=== PATIENT | male | born 1965 | race Caucasian/White ===

== ENCOUNTER 2023-07-22 07:17 | Emergency (ER) | payer OTHER, SELFPAY ==
[2023-07-22] VITALS (7 sets, daily range): BP systolic 130–154; BP diastolic 80–101
--- NOTE | 2023-07-22 07:50 | ED.GENMED ---
History of Present Illness
General
Chief Complaint: Musculo-Skeletal Complaint
Source: patient
Exam Limitations: none
Time Seen by Provider: 07/22/23 07:35
Nursing documentation reviewed up to this point in time: agreed with
Travel History
Have you had any contact with someone who has COVID-19?: No
Do you have any symptoms of coronavirus? Fever > 100 degrees, chills, cough, shortness of breath, sore throat, loss of taste or smell, muscle aches, or headache?: No
History of Present Illness
History of Present Illness:
57-year-old male with past ministry of COPD previous history of alcohol abuse but denies current use, depression, hypertension presenting to the emergency department today with concerns of generalized aches and pains. Claims this been going on for
multiple months including the shoulders elbows and wrists knees ankles and feet. He claims that it somewhat worse more recently he was seen here 2 months ago and was evaluated for probably arthritis. He was started on steroids with improvement at
that point. No additional life-threatening etiology was found at that time. He denies any significant changes feels very similar to that course slightly worse over the past few days. Has had difficulty ambulating secondary to symptoms.
Past History
Past History
ED Past Medical History: COPD, HTN and Psychiatric (Depression)
ED Past Surgical History: Orthopedic (Wrist fracture, )
Social History
Tobacco: Smoker
Alcohol: Former
Personal:
Living: with family
Review of Systems
Review of Systems
Allergies reviewed?: Yes
All Other Systems: ROS reviewed and negative except as documented in HPI and ROS
Phy Exam
Physical Exam
Physical Exam:
GENERAL: Alert , in no apparent distress
EYE: pupils equal and reactive
NECK: Supple, no significant adenopathy.
ENT: o/p clr, mmm.
CARDIAC: Regular rate and rhythm .
LUNGS: Clear breath sounds bilaterally, no acute respiratory distress, no wheezes/rales/rhonchi
ABDOMEN: Soft, without focal tenderness, no r/g, no cvat
NEUROLOGICAL: Alert and oriented, no focal neuro deficits
SKIN: Warm and dry, skin intact.
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 Able to fully range bilateral lower extremities also claims this is
uncomfortable to do so. No significant redness or warmth throughout as well. Full range of motion., well perfused.
PSYCH: Normal and appropriate interaction.
Course
Orders/Labs/Results
Orders:
Orders
07/22/23 07:47
Acetaminophen [Tylenol] 1,000 mg PO NOW STA
Dexamethasone [Decadron] 10 mg PO NOW STA
Ketorolac [Toradol] 30 mg IM NOW STA
07/22/23 08:07
Basic Metabolic Panel Urgent
CBC/With Diff [Complete Blood Count/With Diff] Urgent
Lyme Progressive Urgent
07/22/23 09:01
Pt Eval And Treat Urgent
Activity Level: Ambulate
Abnormal Lab Results
07/22/23
08:07
WBC 4.2 L 10^3/uL
(4.8-10.8)
RBC 2.78 L 10^6/uL
(4.70-6.10)
Hgb 8.9 L g/dL
(13.0-18.0)
Hct 25.8 L %
(39.0-52.0)
MCH 32.0 H pg
(27.0-31.0)
RDW 15.1 H %
(11.5-14.5)
Plt Count 122 L 10^3/uL
(130-400)
MPV 11.0 H fL
(7.4-10.4)
Absolute Lymphs (auto) 0.5 L 10^3/uL
(1.2-3.4)
Neutrophils % 75.8 H %
(42.2-75.2)
Lymphocytes % 12.8 L %
(20.5-51.1)
Monocytes % 10.8 H %
(1.7-9.3)
Sodium 132 L mmol/L
(135-145)
Carbon Dioxide 21 L mmol/L
(22-30)
Creatinine 0.6 L mg/dL
(0.7-1.3)
07/22/23 08:07
07/22/23 08:07
Vital Signs
Initial and Last Documented VS:
Initial Vital Signs
Temp Pulse Resp BP Pulse Ox
99 F 110 16 139/90 98
07/22/23 07:20 07/22/23 07:20 07/22/23 07:20 07/22/23 07:20 07/22/23 07:20
Last Documented Vital Signs
Temp Pulse Resp BP Pulse Ox
99 F 78 16 146/80 98
07/22/23 07:20 07/22/23 08:44 07/22/23 08:44 07/22/23 09:25 07/22/23 09:22
MDM/Problems Addressed
MDM/Problems Addressed:
57-year-old male presenting to the emergency department today with ongoing polyarthralgia that is symmetrical bilaterally. Good range of motion and strength bilaterally but does claim to have discomfort when moving. No redness or warmth. Very
unlikely be septic arthritis with the patient's presentation. No systemic symptoms no fever normal vital signs. Previous evaluation when admitted felt that this was likely an autoimmune issue. He did have improvement with steroids last time.
Patient was given dose of steroid and pain medication. Symptoms improved PT evaluated the patient he was able to walk. Low concern for septic arthritis or emergent process advised for close outpatient follow-up with rheumatology. Return
precautions given.
*Critical Care Note
Total Time (30-74mins, 75-104mins- exclusive of procedures): Not Applicable
ED Attending Note
-
Portions of this chart may have been created with voice recognition software.� Occasional wrong word or��sound alike� substitutions may have occurred due to the inherent limitations of voice recognition software.
Discharge Plan
Departure
Patient Disposition: Home (Routine Discharge)
Date of Disposition: 07/22/23
Time of Disposition: 10:07
Patient with high blood pressure during this ER visit?: No
Condition: Good
Covid-19: Not Applicable
Discharge Problem:
Polymyalgia
Instructions: Muscle and Bone Pain (DC)
Prescriptions:
New
prednisone 20 mg tablet
40 mg PO DAILY 4 Days Qty: 8 0RF
naproxen sodium [Aleve] 220 mg capsule
440 mg PO BID PRN (Reason: Pain) 7 Days Qty: 20 0RF
No Action
carvedilol 6.25 mg Tablet
6.25 mg PO BID Qty: 60 0RF
Referrals:
Nitesh Neil MD [Active] - Follow up in 5-7 days
NONE,* [Family Provider] -
Activity Restrictions/Additional Instructions:
You came to the emergency department today with concerns of bodyaches. This is likely consistent with your previous diagnosis. Please take the prednisone 40 mg once daily for the next 4 days and follow-up closely with the locomotive electrician. Return
to the emergency department for any worsening, new or concerning symptoms.
Interventions
Interventions:
*Risk Screen - Suicide Last Done: 07/22/23 07:20
*General Assessment Last Done: 07/22/23 07:20
*Neglect/Abuse Screening Last Done: 07/22/23 07:20
ED- Fall Risk Assessment Last Done: 07/22/23 07:40
*ED COVID-19 Vaccine History Last Done: 07/22/23 07:40
ED-Musculoskeletal Assessment Last Done: 07/22/23 07:45
[2023-07-22] MEDS: TYLENOL 1000 MG PO (07:58)
[2023-07-22] MEDS: DECADRON 10 MG PO (07:58)
[2023-07-22] MEDS: TORADOL 30 MG IM (08:00)
[2023-07-22 08:15] LABS: % Basophils 0.2 % (0-2); % Eosinophils 0.2 % (0-6); % Immature Granulocytes 0.2 % (0-0.5); % Lymphocytes 12.8 % (20.5-51.1); % Monocytes 10.8 % (1.7-9.3); % Neutrophils 75.8 % (42.2-75.2); Absolute Lymphocytes 0.5 10^3/uL (1.2-3.4); Absolute Monocytes 0.5 10^3/uL (0.1-0.6); Absolute Neutrophils 3.1 10^3/uL (1.4-6.5); Hematocrit 25.8 % (39.0-52.0); Hemoglobin 8.9 g/dL (13.0-18.0); Mean Corp Hgb Conc. 34.5 g/dL (33.0-37.0); Mean Corpuscular Volume 92.8 fL (80.0-94.0); Nucleated Red Blood Cells % 0 % (-); Platelet Count 122 10^3/uL (130-400); Red Blood Cell Count 2.78 10^6/uL (4.70-6.10); Red Cell Dist. Width 15.1 % (11.5-14.5); White Blood Cell Count 4.2 10^3/uL (4.8-10.8)
[2023-07-22 08:39] LABS: Blood Urea Nitrogen 16 mg/dl (9-20); Calcium 8.9 mg/dl (8.4-10.2); Carbon Dioxide 21 mmol/L (22-30); Chloride 106 mmol/L (98-107); Glucose 95 mg/dl (70-99); Sodium 132 mmol/L (135-145); eGFR > 60.00
[2023-07-25 14:15] LABS: Lyme Antibody Screen, EIA Negative (Negative)
== END 2023-07-22 10:00 | disposition home or self-care (01) ==
LOC: EMR 07:17
PROVIDERS: Physician Assistant; EMERGENCY PHYSICIAN Emergency Medicine
DX: M35.3 Polymyalgia rheumatica (principal); J44.9 Chronic obstructive pulmonary disease, unspecified; I10 Essential (primary) hypertension; F32.A Depression, unspecified; F10.10 Alcohol abuse, uncomplicated; F17.200 Nicotine dependence, unspecified, uncomplicated
CPT/HCPCS: 99283; 96372; 80048; 85025; 86618

== ENCOUNTER 2023-08-12 08:10 | Emergency (ER) | payer OTHER, SELFPAY ==
[2023-08-12 08:26] VITALS: BP 143/82
[2023-08-12 08:27] VITALS: BP 143/82
[2023-08-12 08:33] VITALS: BMI 22.5
[2023-08-12] MEDS: NSS 1000 IV (09:28)
[2023-08-12] MEDS: DECADRON 10 MG IV (09:33)
[2023-08-12] MEDS: TORADOL 15 MG IV (09:33)
[2023-08-12 09:59] LABS: % Eosinophils 0.4 % (0-6); % Immature Granulocytes 0.4 % (0-0.5); % Lymphocytes 18.4 % (20.5-51.1); % Monocytes 10.6 % (1.7-9.3); % Neutrophils 70.2 % (42.2-75.2); Absolute Lymphocytes 0.5 10^3/uL (1.2-3.4); Absolute Monocytes 0.3 10^3/uL (0.1-0.6); Absolute Neutrophils 1.7 10^3/uL (1.4-6.5); Hematocrit 22.9 % (39.0-52.0); Hemoglobin 7.5 g/dL (13.0-18.0); Mean Corp Hgb Conc. 32.8 g/dL (33.0-37.0); Mean Corpuscular Hgb 30.9 pg (27.0-31.0); Mean Corpuscular Volume 94.2 fL (80.0-94.0); Mean Platelet Volume 10.9 fL (7.4-10.4); Nucleated Red Blood Cells % 0 % (-); Platelet Count 79 10^3/uL (130-400); Red Blood Cell Count 2.43 10^6/uL (4.70-6.10); Red Cell Dist. Width 16.1 % (11.5-14.5); White Blood Cell Count 2.5 10^3/uL (4.8-10.8)
[2023-08-12 10:12] LABS: ALT (SGPT) 10 U/L (0-50); AST (SGOT) 24 U/L (17-59); Alkaline Phosphatase 112 U/L (38-126); Blood Urea Nitrogen 15 mg/dl (9-20); Calcium 8.7 mg/dl (8.4-10.2); Carbon Dioxide 22 mmol/L (22-30); Chloride 100 mmol/L (98-107); Estimated Creatinine Clearance 117 ml/min; Glucose 86 mg/dl (70-99); Potassium 4.3 mmol/L (3.5-5.1); Sodium 130 mmol/L (135-145); Total Bilirubin 0.5 mg/dl (0.2-1.3); Total Protein 6.5 g/dl (6.3-8.2); eGFR > 60.00
[2023-08-12 10:16] LABS: Erythrocyte Sed Rate 130 mm/hour (0-20)
--- NOTE | 2023-08-12 11:08 | ED.GENMED ---
History of Present Illness
General
Chief Complaint: Swelling
Source: patient
Exam Limitations: none
Time Seen by Provider: 08/12/23 08:14
Nursing documentation reviewed up to this point in time: agreed with
Travel History
Have you had any contact with someone who has COVID-19?: No
Do you have any symptoms of coronavirus? Fever > 100 degrees, chills, cough, shortness of breath, sore throat, loss of taste or smell, muscle aches, or headache?: No
History of Present Illness
History of Present Illness:
58 yo male w h/o alcohol use disorder was in rehab for 30 days in 04/2023, states he drinks 1-2 beer daily no heavy liquor, smoker, presents with 'my hands are swollen' and 'my arms and legs hurt so bad, I can't take it anymore.' States he hasn't
eaten in 3 days due to the pain. Had similar symptoms in past, starting in March 2023. Was here for similar symptoms 05/23/23 and admitted for polyarthralgia with polyarthritis, pancytopenia due to chronic alcoholism. He was discharged on
prednisone 10 mg daily and told to follow-up with rheumatology in 1 week; he has not done so but today he states he has a rheumatology appointment but not until the end of August with someone in [place].
Denies fever/chills, n/v/d.
Past History
Past History
ED Past Medical History: COPD, HTN and Psychiatric (Depression)
ED Past Surgical History: Orthopedic (Wrist fracture, )
Social History
Tobacco: Smoker
Alcohol: Former
Personal:
Living: with family
Review of Systems
Review of Systems
Allergies reviewed?: Yes
All Other Systems: ROS reviewed and negative except as documented in HPI and ROS
Constitutional: Reports weight loss (30 lbs past 4 months); Denies fever
Respiratory: Denies trouble breathing
Cardiac: Denies chest pain
ABD/GI: Reports anorexia; Denies abdominal pain, nausea, vomiting, diarrhea, bloody stools or black stools
: Denies dysuria, frequency, difficulty voiding or urgency
Musculoskeletal: Reports other (Pain in lower extremities, upper extremities, hands); Denies edema
Skin: Reports no symptoms
Neurological: Denies headache
Phy Exam
Physical Exam
Physical Exam:
GENERAL: No acute distress. A&Ox3.
CONSTITUTIONAL: Afebrile.
EYES: Clear, conjunctivae normal
Neck: Supple
ENMT: moist mucus membranes, Pharynx nl
RESPIRATORY: Regular respirations, nonlabored, lungs clear.
CARDIOVASCULAR: Regular rate and rhythm, no murmurs, no rubs.
GI: Soft, nontender, normal BS
Rectal: Light brown stool, hematemesis negative
MUSCULOSKELETAL: Hands are held in a semi claw like position, painful to move, mildly swollen, no redness or warmth. No joint swelling. Brisk capillary refill. It is painful for him to move his arms and legs but he can do so and can ambulate.
Well perfused.
SKIN: Warm, dry, pink
PSYCH: Normal mood and affect. Well kept, interactive and appropriate
NEUROLOGIC: Awake, alert and oriented. No focal neurological deficits
Scores
Heart Failure Risk
Heart Failure Risk Score: Not Applicable
Course
Orders/Labs/Results
Orders:
Orders
08/12/23 08:14
Dexamethasone Sod Phosphate [Decadron] 10 mg IV NOW STA
Ketorolac [Toradol] 15 mg IV NOW STA
08/12/23 08:16
0.9% Sodium Chloride 1000 ml [Nss] 1,000 ml IV BOLUS
08/12/23 09:36
CRP [C-Reactive Protein] Urgent
Complete Blood Count/With Diff Urgent
Comprehensive Metabolic Panel Urgent
Hepatitis C Antibody Routine
Rheumatoid Factor [Rheumatoid Agglutinin] Routine
Sed Rate [Erythrocyte Sed Rate] Urgent
Uric Acid Urgent
Comment: ADD ON
08/12/23 12:20
SCOTT, IgG Reflex to HEp-2 [S] Routine
Cyclic Citrullinat Pep IgG/IgA [S] Routine
Protein Electrophoresis Reflex [S] Routine
Chest [CR Chest - 2 Views ] Urgent
Comment:
Reason For Exam: weight loss, polyarthritis, Rhematology request
08/12/23 12:24
CR Hand - Left Min 3 Views Urgent
Comment:
Reason For Exam: polyarthritis
CR Hand - Right Min 3 Views Urgent
Comment:
Reason For Exam: polyarthritis
Abnormal Lab Results
08/12/23
09:36
WBC 2.5 L 10^3/uL
(4.8-10.8)
RBC 2.43 L 10^6/uL
(4.70-6.10)
Hgb 7.5 L g/dL
(13.0-18.0)
Hct 22.9 L %
(39.0-52.0)
MCV 94.2 H fL
(80.0-94.0)
MCHC 32.8 L g/dL
(33.0-37.0)
RDW 16.1 H %
(11.5-14.5)
Plt Count 79 L 10^3/uL
(130-400)
MPV 10.9 H fL
(7.4-10.4)
Absolute Lymphs (auto) 0.5 L 10^3/uL
(1.2-3.4)
Lymphocytes % 18.4 L %
(20.5-51.1)
Monocytes % 10.6 H %
(1.7-9.3)
ESR 130 H mm/hour
(0-20)
Sodium 130 L mmol/L
(135-145)
Creatinine 0.6 L mg/dL
(0.7-1.3)
C-Reactive Protein 40.10 H mg/L
(0.0-10.00)
Albumin 3.0 L g/dl
(3.5-5.0)
08/12/23 09:36
08/12/23 09:36
Vital Signs
Initial and Last Documented VS:
Initial Vital Signs
BP
143/82
08/12/23 08:26
Last Documented Vital Signs
Temp Pulse Resp BP Pulse Ox
98.1 F 88 17 148/97 97
08/12/23 15:42 08/12/23 15:42 08/12/23 15:42 08/12/23 15:42 08/12/23 15:42
MDM/Problems Addressed
MDM/Problems Addressed:
58 yo male w h/o alcohol use disorder was in rehab for 30 days in 04/2023, states he drinks 1-2 beer daily no heavy liquor, smoker, presents with 'my hands are swollen' and 'my arms and legs hurt so bad, I can't take it anymore.' States he hasn't
eaten in 3 days due to the pain. Had similar symptoms in past, starting in March 2023. Was here for similar symptoms 05/23/23 and admitted for polyarthralgia with polyarthritis, pancytopenia due to chronic alcoholism. He was discharged on
prednisone 10 mg daily and told to follow-up with rheumatology in 1 week; he has not done so but today he states he has a rheumatology appointment but not until the end of August with someone in [place].
Denies fever/chills, n/v/d.
12:16 PM
Patient ate a full lunch
CBC: Pancytopenia worsening since 07/22/2023
CMP with no clinically significant abnormality
CRP elevated at 40/10
Sed rate 130
No indication of GI bleed.
Case discussed with collator Dr. Samuel.
She can get patient in to the on Tuesday which is 4 days from now if we can get the lab work. All labs she requested are ordered.
She will follow up with lab results and get pt in next week
Recommends Prednisone 40 mg daily
Pt is comfortable with this plan.
Bilateral hand x-rays complete. Mild DJD right hand otherwise unremarkable
Chest x-ray NAD
Pt is stable for discharge
*Critical Care Note
Total Time (30-74mins, 75-104mins- exclusive of procedures): Not Applicable
ED Attending Note
-
Portions of this chart may have been created with voice recognition software.� Occasional wrong word or��sound alike� substitutions may have occurred due to the inherent limitations of voice recognition software.
Discharge Plan
Departure
Patient Disposition: Home (Routine Discharge)
Date of Disposition: 08/12/23
Time of Disposition: 13:32
Patient with high blood pressure during this ER visit?: No
Condition: Fair
Discharge Problem:
Polyarthritis
Instructions: Rheumatoid arthritis, Joint Pain
Prescriptions:
New
prednisone 20 mg tablet
40 mg PO DAILY Qty: 14 0RF
No Action
carvedilol 6.25 mg Tablet
6.25 mg PO BID Qty: 60 0RF
prednisone 20 mg tablet
40 mg PO DAILY 4 Days Qty: 8 0RF
naproxen sodium [Aleve] 220 mg capsule
440 mg PO BID PRN (Reason: Pain) 7 Days Qty: 20 0RF
Referrals:
NONE,* [Family Provider] -
Margarita Samuel MD [Active] - Keep scheduled appt
Activity Restrictions/Additional Instructions:
As we discussed, I sent prescription to your pharmacy for Prednisone to take 40 mg daily until further instructed by the Rheumatology doctor on TuesdayAugust 14.
Start the Prednisone tomorrow as you were given a dose of steroid here today.
If you do not hear from the Rheumatology doctor by Tuesday at noon, call her office and inform them of today's plan.
Go home and rest.
No driving until further instructed by the Rheumatology doctor
Interventions
Interventions:
*Risk Screen - Suicide Last Done: 08/12/23 08:29
*General Assessment Last Done: 08/12/23 08:29
*Neglect/Abuse Screening Last Done: 08/12/23 08:29
ED- Fall Risk Assessment Last Done: 08/12/23 08:30
*ED COVID-19 Vaccine History Last Done: 08/12/23 08:29
*Nursing Disposition Last Done: 08/12/23 15:42
ED- Cardiac Assessment Last Done: 08/12/23 09:42
ED- Pulmonary Assessment Last Done: 08/12/23 08:30
ED-Skin Assessment Last Done: 08/12/23 09:42
Discharge Date and Time
Discharge Date/Time: 08/12/23 15:44
Print Language: [place]
[2023-08-12 12:00] VITALS: BP 125/75
[2023-08-12 13:42] VITALS: BP 141/97
[2023-08-12 14:00] VITALS: BP 123/71
[2023-08-12 15:22] LABS: Uric Acid 6.7 mg/dl (3.5-8.5)
[2023-08-12 15:42] VITALS: BP 148/97
[2023-08-12 19:29] LABS: Hepatitis C Antibody Negative (Negative)
[2023-08-15 16:17] LABS: Rheumatoid Agglutinin Less Than 10 IU (<10 IU)
== END 2023-08-12 15:44 | disposition home or self-care (01) ==
LOC: EMR 08:10
PROVIDERS: Registered Nurse; EMERGENCY PHYSICIAN Emergency Medicine
DX: M13.0 Polyarthritis, unspecified (principal)
CPT/HCPCS: 99284; 96374; 96375; 96361; 71046; 73130; 80053; 84550; 85025; 85652; 86140; 86430; 86803

== ENCOUNTER 2023-10-13 05:21 | Inpatient (IN) | payer OTHER, SELFPAY ==
[2023-10-12 20:29] VITALS: BP 133/78
[2023-10-12] MEDS: NSS 1000 IV (22:40)
[2023-10-12 22:53] LABS: Hematocrit 28.2 % (39.0-52.0); Hemoglobin 9.6 g/dL (13.0-18.0); Mean Corpuscular Hgb 30.5 pg (27.0-31.0); Mean Corpuscular Volume 89.5 fL (80.0-94.0); Mean Platelet Volume 9.7 fL (7.4-10.4); Platelet Count 136 10^3/uL (130-400); Red Blood Cell Count 3.15 10^6/uL (4.70-6.10); Red Cell Dist. Width 16.7 % (11.5-14.5); White Blood Cell Count 8.1 10^3/uL (4.8-10.8)
[2023-10-12 23:08] LABS: ALT (SGPT) 23 U/L (0-50); AST (SGOT) 34 U/L (17-59); Acetaminophen < 10 ug/ml (10-30); Albumin 3.4 g/dl (3.5-5.0); Alcohol 184 mg/dl; Alkaline Phosphatase 138 U/L (38-126); Blood Urea Nitrogen 14 mg/dl (9-20); Calcium 8.9 mg/dl (8.4-10.2); Carbon Dioxide 25 mmol/L (22-30); Chloride 104 mmol/L (98-107); Glucose 88 mg/dl (70-99); Magnesium 1.4 mg/dl (1.6-2.3); Salicylate < 1.0 mg/dl (2.0-20.0); Sodium 139 mmol/L (135-145); Total Bilirubin 0.3 mg/dl (0.2-1.3); eGFR > 60.00
[2023-10-13] VITALS (14 sets, daily range): BP systolic 116–180; BP diastolic 60–108; BMI 20.6; BMI 22.3
[2023-10-13] MEDS: MULTIVITAMIN 1011 ML IV (00:29)
[2023-10-13] MEDS: MULTIVITAMIN 1011 MG IV (00:29)
[2023-10-13] MEDS: MAGNESIUM SULFATE 102 GRAMS IV (00:30)
[2023-10-13] MEDS: ATIVAN 1 MG IV (00:38)
[2023-10-13] MEDS: MOTRIN 400 MG PO (01:02)
[2023-10-13 01:43] LABS: COVID-19 Antigen Negative (Negative)
--- NOTE | 2023-10-13 02:44 | ED.GENMED ---
History of Present Illness
General
Chief Complaint: Alcohol Problem
Source: patient
Exam Limitations: none
Time Seen by Provider: 10/12/23 21:31
Nursing documentation reviewed up to this point in time: agreed with
Travel History
Have you had any contact with someone who has COVID-19?: No
Do you have any symptoms of coronavirus? Fever > 100 degrees, chills, cough, shortness of breath, sore throat, loss of taste or smell, muscle aches, or headache?: No
History of Present Illness
History of Present Illness:
Patient with history of alcoholism and depression, presents to ED requesting assistance secondary to recurrent suicidal thoughts, without plan. Denies homicidal ideation. Patient does not know why he has these feelings. Denies recent illness.
Denies fever or chills. However, shortly after arrival, patient noted to be febrile. Denies vomiting or diarrhea. Denies loss of appetite. Patient does admit to having had alcohol this afternoon. Denies previous history of suicidal attempts.
Past History
Past History
ED Past Medical History: COPD, HTN and Psychiatric (Depression)
ED Past Surgical History: Orthopedic (Wrist fracture, )
Social History
Tobacco: Smoker
Alcohol: Former
Personal:
Living: with family
Review of Systems
Review of Systems
Allergies reviewed?: Yes
All Other Systems: ROS reviewed and negative except as documented in HPI and ROS
Constitutional: Reports no symptoms; Denies fever or chills
EENT: Reports no symptoms
Respiratory: Reports cough; Denies trouble breathing
Cardiac: Reports no symptoms
ABD/GI: Reports no symptoms; Denies vomiting or diarrhea
Musculoskeletal: Reports no symptoms
Skin: Reports no symptoms
Neurological: Reports no symptoms
Phy Exam
Physical Exam
Physical Exam:
Physical Exam
General: mild distress, not acutely ill. afebrile
Head: nc/at. eomi
Neck: supple. no meningeal signs.
Heart: tachycardic, no murmur. equal radial pulses.
Lungs: no acute respiratory distress. rhonchi bilaterally
Abdomen: normal bowel sounds. not tender.
Neuro: alert and oriented. no focal neurological deficits
Skin: no rash
Psychiatric: well kept. interactive and cooperative
Extremities: no edema. no calf tenderness.
Scores
Withdrawal Assessment of Alcohol
Withdrawal Assessment Completed?: No
Course
Orders/Labs/Results
Orders:
Orders
10/12/23 22:15
Electrocardiogram (*1) Urgent
Reason for Study: QTc Monitoring
EKG- Treatment ONCE
Urine Drug Abuse Screen Urgent
Date Specimen was Collected: 10/13/23
Time Specimen was Collected: 02:30
0.9% Sodium Chloride 1000 ml [Nss] 1,000 ml IV BOLUS
10/12/23 22:16
Crisis Consult Urgent
Reason for Consult: suicidal ideation
10/12/23 22:41
Acetaminophen Urgent
Alcohol Urgent
Complete Blood Count/No Diff Urgent
Comprehensive Metabolic Panel Urgent
Magnesium Urgent
Salicylate Urgent
10/12/23 23:00
0.9% Sodium Chloride 1000 ml [Nss] 1,000 ml Mvi, Adult [Multivitamin] 10 ml Thiamine Injection 100 mg IV 100 mls/hr
10/12/23 23:38
Lorazepam [Ativan] 1 mg IV NOW STA
10/12/23 23:48
Magnesium Sulfate 1 grams 0.9% Sodium Chloride 100 ml [Nss] 100 ml IV NOW
10/13/23 00:39
Ibuprofen [Motrin] 400 mg PO NOW STA
10/13/23 00:44
CR Chest - 2 Views Urgent
Comment:
Reason For Exam: cough/fever
10/13/23 01:04
COVID-19 Antigen Urgent
Source: Nasal Swab
Blood Culture Q30M
JORDEN Source: Blood/Venous
Specimen Description:
Blood Culture Q30M
JORDEN Source: Blood/Venous
Specimen Description:
Influenza A+B Rapid Molecular Urgent
JORDEN Source: Nasal Swab
Specimen Description:
10/13/23 02:39
CT Chest W/o Iv Contrast Urgent
Comment:
Reason For Exam: cough/fever
10/13/23 02:52
Urinalysis Reflex To Culture Urgent
Date Specimen was Collected: 10/13/23
Time Specimen was Collected: 02:30
Urine Microscopic Reflex Cult Urgent
Urine Culture Urgent
JORDEN Source: U
Specimen Description:
Date Specimen was Collected: 10/13/23
Time Specimen was Collected: 02:30
10/13/23 03:34
Piperacillin/Tazo 3.375 Gram [Zosyn] 3.375 gram in 50 ml IV NOW
10/13/23 04:03
Admit/Transfer Patient As Directed
Co-Sign Provider:
Level of Care: Inpatient admission
Assign to:: Telemetry
Physician / Group: [email or web address]
Diagnosis: SIRS picture vs. acute ETOH WDS / suicidl ideation
Reason for Telemetry: Other
Other Reason for Telemetry: SIRS
Date to Stop Telemetry: 10/15/23
Time to Stop Telemetry: 11:00
Reason for Hospitalization: SIRS picture vs. acute ETOH WDS / suicidl ideation
Expected length of stay greater than two midnights?: Yes
ELOS- Estimated Length of Stay in days: 3
I certify the patient meets the requirements for IP care: Yes
10/13/23 04:05
Code Status As Directed
Resuscitation Status: Full Code
10/13/23 05:36
0.9% Sodium Chloride 1000 ml [Nss] 1,000 ml IV 60 mls/hr
0.9% Sodium Chloride [Nss (Preservative Free)] See Protocol IV PRN PRN
Acetaminophen [Tylenol] 650 mg PO Q4HPRN PRN
FOLic ACID [Folvite] 1 mg 0.9% Sodium Chloride 50 ml [Nss] 50 ml IV DAILYPRN
Ipratropium/Albuterol Sulfate [Duoneb] 3 ml INH R Q4HPRN PRN
Lorazepam [Ativan] 1 mg IV Q1HPRN PRN
Lorazepam [Ativan] 1 mg PO Q2HPRN PRN
Lorazepam [Ativan] 2 mg IV Q1HPRN PRN
10/13/23 05:36
Case Management Consult Once
Case Management Consult: Other
Comment: Substance abuse counseling
Consult Notification Routine
Specialty to Notify: Psychiatry
Date consulting provider notified: 10/13/23
Time consulting provider notified: 05:49
Notified:: Office
Comment: Spoke with [facility] at [address] Naik
DIETARY CONSULT Routine
Reason for Consult: Nutrition support, possible refeeding guidelines
PSYCHIATRY CONSULT Routine
Consulting Provider: Guanakito Cortez
Was physician already notified: No
Reason for consult: HX depresion , suicidal ideation, ETOH use, PNA
Activity As Directed
Activity Level: Out of Bed-Early Mobility
Intake/ Output As Directed
Frequency: Per unit guidelines
MSAS SCORE As Directed
MSAS Score 0-4: Repeat MSAS every 2 hours until 0-4 for three consecutive assessments, then every 4 hours x 48
hours.
MSAS Score 5-7: For MILD withdrawl symptoms. Repeat MSAS and RASS every 2 hours
MSAS Score 8-11: For MODERATE withdrawal symptoms. Repeat MSAS and RASS every 1 hour. Consider ICU or IMU
level of care.
MSAS Score > 11: For SEVERE withdrawal symptoms. Repeat MSAS and RASS every 1 hour. Notify provider, consider
ICU level of care.
MSAS Additional Instructions: If no improvement or no decrease in score from severe to moderate within 12
hours, consult psychiatry
MSAS Notify Provider: Notify provider if patient requires more than 10 mg of Lorazepam in eight hour period.
Vital Signs As Directed
Frequency: Per unit guidelines
Weight As Directed
Frequency: Once
Comment: on admission
DX Deep Vein Thrombosis Video Routine
10/13/23 Breakfast
Cholesterol Lowering
At Your Request: Limited, Residential Sales Consultant Required
Does patient need a safe tray?: Yes
Cholesterol Lowering: Sodium, 2 Gram
10/13/23 07:26
Basic Metabolic Panel IN AM
Complete Blood Count/No Diff IN AM
Procalcitonin Routine
PCT Algorithmm Indication: Sepsis
10/13/23 08:00
FOLic ACID [Folvite] 1 mg PO DAILY
Guaifenesin [Mucinex] 600 mg PO Q12
Nicotine [Nicoderm Transdermal] 21 mg TRANSDERM DAILY
Thiamine Injection 200 mg IV Q12
10/13/23 10:00
Piperacillin/Tazo 3.375 Gram [Zosyn] 3.375 gram in 50 ml IV Q6H
10/13/23 18:00
Enoxaparin Sodium [Lovenox] 40 mg SC QPM
10/15/23 11:00
DC Protocol for Telemetry ONCE
10/16/23 08:00
Thiamine HCl [Vitamin B1] 100 mg PO BID
Abnormal Lab Results
10/12/23 10/13/23
22:41 02:52
RBC 3.15 L 10^6/uL
(4.70-6.10)
Hgb 9.6 L g/dL
(13.0-18.0)
Hct 28.2 L %
(39.0-52.0)
RDW 16.7 H %
(11.5-14.5)
Magnesium 1.4 L mg/dl
(1.6-2.3)
Alkaline Phosphatase 138 H U/L
(38-126)
Albumin 3.4 L g/dl
(3.5-5.0)
Urine Ketones Trace A
(Negative)
Leukocyte Esterase Rfl Trace A
(Negative)
Urine WBC (Reflex) >100 A /HPF
(0-5)
Urine Bacteria (Reflex) Many A
(Negative)
Urine Albumin (Reflex) 1+ A
(Neg - Trace)
Salicylates < 1.0 L mg/dl
(2.0-20.0)
Acetaminophen < 10 L ug/ml
(10-30)
U Marijuana (THC) Screen Positive H
(Negative)
10/12/23 22:41
10/12/23 22:41
Vital Signs
Initial and Last Documented VS:
Initial Vital Signs
Temp Pulse Resp BP Pulse Ox
98.5 F 105 20 133/78 99
10/12/23 20:29 10/12/23 20:29 10/12/23 20:29 10/12/23 20:29 10/12/23 20:29
Last Documented Vital Signs
Temp Pulse Resp BP Pulse Ox
99.2 F 86 16 155/82 97
10/14/23 11:15 10/14/23 11:15 10/14/23 11:15 10/14/23 11:15 10/14/23 11:15
MDM/Problems Addressed
MDM/Problems Addressed:
History and exam concerning for potential aspiration pneumonia, in light of fever along with significant intermittent cough, with history of alcoholism.
CT chest pending.
Patient will be admitted for further evaluation. Patient will be started on Zosyn IV along with continuation of IV hydration. Patient unfortunately is at high risk for potential alcohol withdrawal, i.e. DTs.
*Critical Care Note
Total Time (30-74mins, 75-104mins- exclusive of procedures): Not Applicable
ED Attending Note
-
Portions of this chart may have been created with voice recognition software.� Occasional wrong word or��sound alike� substitutions may have occurred due to the inherent limitations of voice recognition software.
Discharge Plan
Departure
Patient Disposition: Admit
Date of Disposition: 10/13/23
Time of Disposition: 03:24
Admit to: IMU
Presentation/result/management discussed w/ accepting MD/DO: Hospitalist
Discharge Problem:
Aspiration pneumonia, Alcoholism, Suicidal ideation
Interventions
Interventions:
*Risk Screen - Suicide Last Done: 10/12/23 20:29
*General Assessment Last Done: 10/12/23 20:29
*Neglect/Abuse Screening Last Done: 10/12/23 20:29
ED- Fall Risk Assessment Last Done: 10/12/23 22:49
*ED COVID-19 Vaccine History Last Done: 10/13/23 03:16
*Nursing Disposition Last Done: 10/13/23 06:20
ED- Neurological Assessment Last Done: 10/12/23 22:49
ED-Psychological Assessment Last Done: 10/12/23 22:49
Discharge Date and Time
Discharge Date/Time: 10/13/23 13:57
[2023-10-13 03:10] LABS: Urine Albumin 1+ (Neg - Trace); Urine Bilirubin Negative (Negative); Urine Character Slightly Cloudy (Clear); Urine Color Amber; Urine Glucose Negative (Negative); Urine Ketone Trace (Negative); Urine Leukocyte Trace (Negative); Urine Nitrite Negative (Negative); Urine Occult Blood Negative (Negative); Urine Urobilinogen Negative (Neg - 1+)
[2023-10-13 03:27] LABS: Amphetamines Negative (Negative); Barbiturates Negative (Negative); Benzodiazepines Negative (Negative); Buprenorphine Negative (Negative); Cocaine Negative (Negative); Marijuana Positive (Negative); Methadone Negative (Negative); Methamphetamines Negative (Negative); Opiates Negative (Negative); Phencyclidine Negative (Negative); Tricyclic Antidepressants Negative (Negative)
[2023-10-13] MEDS: ZOSYN 50 IV ×2 (03:42→11:04)
--- NOTE | 2023-10-13 03:57 | HPS.HSE ---
Family Physician
-
Family Physician: NOT KNOW UNKNOWN - PT DOES
Chief Complaint
-
suicidal ideation, ETOH abuse, fever
History of Present Illness
58M HX depression , ETOH use disorder initially ER evalaution for crisis concerning recurrent suicidal thoughts, without plan. Denies homicidal ideation. Patient does not know why he has these feelings. No prior HX of suicidal attempts.
Patient does admit to having had alcohol this afternoon
Soon after arrival to ER noted spiked fever to 101, tachycardic and tachypnic
- NEG Covid NEG Flu A & B
- noted b/l ronchiii on exam
- significant intermittent cough
- no nausea and vomiting
Medical History
Past Medical History
Past Medical History: Reports COPD, HTN, Psychiatric (depression , chronic ETOH use disorder) and Other (chr LBP )
Past Surgical History: Reports None
Social History
Tobacco: Smoker
Alcohol: Other (ETOH level 180 )
Drug: None
Personal:
Living: With Family
Family History
Family History: Not pertinent
Allergies / Home Medications
Allergies reflects when Allergies were last updated in [facility].
Home Medications with original date entered in [facility]
Allergy/Medication List:
Allergies
Allergy/AdvReac Type Severity Reaction Status Date / Time
No Known Allergies Allergy Verified 07/22/23 07:19
Home Medications
carvedilol 6.25 mg tablet 6.25 mg PO BID #60 tabs 05/25/23
naproxen sodium 220 mg capsule (Aleve) 440 mg (2 x 220 mg) PO BID PRN Pain 7 days #20 caps 07/22/23
prednisone 20 mg tablet 40 mg (2 x 20 mg) PO DAILY 4 days #8 tabs 07/22/23
prednisone 20 mg tablet 40 mg (2 x 20 mg) PO DAILY #14 tabs 08/12/23
Review of Systems
-
Constitutional: Reports Fever; Denies Chills
EENT: Reports No Symptoms
Respiratory: Reports Cough
Cardiac: Reports No Symptoms
Abdomen/GI: Reports No Symptoms
: Reports No Symptoms
Musculoskeletal: Reports No Symptoms
Skin: Reports No Symptoms
Neurological: Reports No Symptoms
Endocrine: Reports No Symptoms
Hematologic/Lymphatic: Reports No Symptoms
Psych: Reports See HPI
Physical Exam
Vital Signs
Vital Signs
Temp Pulse Resp BP Pulse Ox
101.6 F H 115 24 145/73 91
10/13/23 03:00 10/13/23 03:00 10/13/23 03:00 10/13/23 03:00 10/13/23 03:00
Physical Exam
General: Well Developed, No Apparent Distress, Conversant and Other (unkempt , disheveled )
HEENT: NormoCephalic, Anicteric and Moist mucous membranes
Respiratory: Rhonchi (syummetric )
Cardiac: S1/S2 and Tachycardia; No Murmur
Breast: Deferred by me
GI: Soft, Non Tender, Non Distended and Normal Bowel Sounds
Rectal: Deferred by Provider
Genito-urinary: Deferred by me
Musculoskeletal: No Edema
Skin: Warm and Dry
Neuro: AO x 3
Psych: Depressed and Suicidal (ideation )
Laboratory Results
-
10/12/23 22:41
10/12/23 22:41
Laboratory Results
Total Bilirubin 0.3 mg/dl (0.2-1.3) 10/12/23 22:41
AST 34 U/L (17-59) 10/12/23 22:41
ALT 23 U/L (0-50) 10/12/23 22:41
Alkaline Phosphatase 138 U/L (38-126) H 10/12/23 22:41
Data Reviewed
-
Diagnostic Radiology: Other (pending report )
CT Scan: Other (pending report )
Lab Data: Labs Reviewed by me
Impression/Plan
-
Reviewed VS: T 101.6 HR 115 BP 145/73 RR24 POx 91
Data
WCC 8.1
Hgb 9.6 - baseline is 9-10s
Unremarkable CMP
UA pending to complete urinalysis
BCx
NEG Covid NEG Flu A & B
Unremarkable salicylates and acetaminophen level
UDS POS for THC
ETOH 184
CXR pending report
CTC w/o IV contrast pending report
EKG ST
Last hospitalist admission: 05/23/23 - 05/25/23
Principal Diagnosis:
Scalp rash likely Seborrheic Dermatitis
Symmetric polyarthralgia with polyarthritis, unclear etiology
ASSESSMENT & PLAN
Fever , tachypneic , tachycardic: SIRS picture vs. acute ETOH WDS
Significant cough but not productive
Concern for aspiration pneumonitis confirmed by CTchest shows multi focal pneumonia.
- Pending complete urinalysis
- check PCT
- cont empiric Zosyn
- IVF
- f/u BCx
ETOH use disorder
ETOH 184
at risk for ETOH WDS
- MSAS protocol
- Psych consult
Suicidal ideation without plan
Denies homicidal ideation.
No prior HX of suicidal attempts
-crisis seen
- 1 to 1
Chr Dxes
COPD,
History of chronic lower back pain
Essential hypertension
- Pending Rx reconciliation
DVT Px: LMWH
Code: Full code
IP TLM
[2023-10-13 05:53] LABS: Urine Amorphous Seen; Urine Bacteria Many (Negative); Urine Squamous Cell SEEN /LPF (Few); Urine White Cell >100 /HPF (0-5)
[2023-10-13 07:46] LABS: Hematocrit 22.9 % (39.0-52.0); Hemoglobin 7.7 g/dL (13.0-18.0); Mean Corp Hgb Conc. 33.6 g/dL (33.0-37.0); Mean Corpuscular Hgb 31.2 pg (27.0-31.0); Mean Corpuscular Volume 92.7 fL (80.0-94.0); Red Blood Cell Count 2.47 10^6/uL (4.70-6.10); Red Cell Dist. Width 16.4 % (11.5-14.5); White Blood Cell Count 6.5 10^3/uL (4.8-10.8)
[2023-10-13 07:57] LABS: Mean Platelet Volume 10.2 fL (7.4-10.4); Platelet Count 90 10^3/uL (130-400)
[2023-10-13 08:00] LABS: Blood Urea Nitrogen 17 mg/dl (9-20); Calcium 7.6 mg/dl (8.4-10.2); Carbon Dioxide 25 mmol/L (22-30); Chloride 107 mmol/L (98-107); Glucose 179 mg/dl (70-99); Potassium 3.8 mmol/L (3.5-5.1); Sodium 136 mmol/L (135-145); eGFR > 60.00
[2023-10-13 08:15] LABS: Procalcitonin 0.12 ng/ml (0.0-0.25)
[2023-10-13] MEDS: MUCINEX 600 MG PO ×2 (09:04→21:25)
[2023-10-13] MEDS: NICODERM TRANSDERMAL 21 MG TRANSDERM (09:04)
[2023-10-13] MEDS: FOLVITE 1 MG PO (09:05)
[2023-10-13] MEDS: THIAMINE INJECTION 200 MG IV ×2 (09:05→21:26)
--- NOTE | 2023-10-13 10:19 | CON.MD ---
Consultation - Medical
-
patient seen chart reviewed. spoke with nursing and with dr hargrove. the patient is known to me from a psych evaluation in may of 2022 in the context of a 302 petition alleging he had made suicidal comments. he denied suicidality when he got
sober. he comes to with suicidal ideation without plan. he was found to febrile with cough and cxr suggests pneumonia for which being rx. he is being hospitalized. he also admits he drinks on a dily basis for 'years' although he did have four
to five months of sobriety in the past year but says he relapsed bc of chronic pain. there is mention of polymyalgia rheumatica in the chart but apparently workup not completed. the patient drinks on a daily basis. he could not quantitate how much
and his bal was 185 last drink the day of admission.he did tell me in the past he drinks a liter of hard liquor at a time. he did admit to si in the past but says he will never take his life. sleep and appetite disturbed by chronic pain etc. he
can enjoy some moments but mostly enjoys relief from pain which happens when he passes out from drinking. he has no prior psych hx. there is nothing to suggest psychosis
past psych hx none
medical hx see above pneumonia currently smokes cigs. hx htn hld copd. reports prednisone currently for joint pain see above htn copd anemia (hgb 7.60) ua abn w culture pending as are blood cultures fbs 179 hypocalcemia elev alk phos
vitals w eleva systolic pressure currently afebrile
fh denied
substance abuse etoh see above
social hx see orior psych eval there are supportive family members. 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
mse alert ox3 cooperative pleasant. he looks medically ill and somewhat grisly. speech and thought process nl affect appropriate mood is neutral denies suicidality average intelligence insight judgment lacking
dx etoh use disorder severe
plan msas monitor wd sx if worsens consider phenobarb detox.. workup up medical issues including anemia joint and muscle pain abnormal ua . he really should go to in pt rehab. consult bcares. will follow
--- NOTE | 2023-10-13 10:25 | W.PN.UPDATE ---
Update Note
Progress Note Update
Patient seen and examined
Discussed with resident
Impression:
Presentation with fever, tachycardia.
Multifocal pneumonia.
Alcohol use disorder with risk for delirium tremens.
Possible clinical depression, not confirmed suicidal ideation
Pancytopenia
Suspect alcohol induced hepatic steatosis.
Chronic polyarthralgia
COPD asthma
Hypertension.
Plan:
Presentation with fever, tachycardia
Chest x-ray/CT scan with multifocal pneumonia.
Sepsis ruled out.
? If community-acquired versus aspiration in patient with alcohol intoxication.
Will consider narrow antibiotic spectrum to Unasyn with addition of doxycycline to cover atypical pathogens.
Follow blood cultures
Sputum culture.
Speech and swallow evaluation
Pancytopenia suspect secondary to alcohol use.
Chronic normocytic anemia
No prior history of workup or screening colonoscopy
Check iron studies/B12.
Follow CBC
Empiric PPI
Polyarthralgia
Prior rheumatologic workup negative for SCOTT and rheumatoid factor. Had mild elevation of sed rate and CRP. Referred but never follow-up with rheumatology as outpatient
Reports recent Medrol taper prescribed by primary physician
Will check inflammatory markers, uric acid level, repeat SCOTT and rheumatoid factor, CPK.
Physical therapy evaluation
Alcohol use disorder
Suspect severe given hepatic steatosis
Alcohol intoxication upon admission.
Monitor for DT.
Continue MSAS protocol with lorazepam
Psychiatry consultation
Denies suicidal ideations
COPD
Doubt exacerbation as patient presents with no wheezing.
Imaging with bilateral/multifocal pneumonia as above.
Continue preadmission regimen including Symbicort and albuterol nebs.
Essential hypertension.
On [employer] HOSPITALITY INTERN.
Monitor BP trend.
DVT prophylaxis Lovenox
Full code.
[2023-10-13] MEDS: NSS 1000 IV (11:02)
--- NOTE | 2023-10-13 11:42 | PTOTSP ---
Dysphagia Evaluation
Patient has acute on chronic risk factors for dysphagia (i.e., COPD, ETOH use disorder, and current PNA.) Patient denied any history of chronic dysphagia. Per chart review, chest x-rays (08/12/2023, 03/09/2023, 02/18/2023) without any signs of prior
PNA.
Patient with frequent coughing which makes ruling out aspiration at the bedside difficult at this time. Low suspicion for acute PNA from top-down aspiration. However, if concerned for this consider video swallow study. Suspect oral/pharyngeal
stages of swallowing WFL to continue diet below with swallowing precautions.
Recommend:
1. Regular, Thin Liquids
2. Medications as best tolerated
3. Strategies: upright to 90 degrees, small single sips/bites, slow rate, breaks for breathing, and avoiding PO intake when SOB and/or coughing
4. Oral care 3x daily
--- NOTE | 2023-10-13 12:41 | W.PN.HOSP.TC ---
Today's Communication/Plan
-
MSAS protocol.
Lorazepam as needed.
Speech eval, PT eval.
POLYARTHRALGIA workup.
Anemia workup.
FOBT.
Assessment / Plan
Assessment / Plan
Assessment -
58-year-old male admitted to the hospital for evaluation of active suicidal ideation without plan, alcohol intoxication.
Impression:
Pneumonia.
Alcohol use disorder with risk for delirium tremens.
MDD with suicidal ideation.
Alcoholic steatosis.
Pancytopenia.
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
Polymyalgia rheumatica-questionable no workup
COPD asthma
Hypertension.
Alcohol use disorder
Suicidal ideation, MDD.
Plan:
CAP-
Presentation with fever, tachycardia.
Chest r-sia-awciczoys. CT scan-multifocal pneumonia.
SIRS positive, negative for sepsis.
Rule out pneumonia secondary to aspiration, speech therapy consulted. Speech and swallow evaluation.
Unasyn plus doxycycline.
Blood cultures pending.
Procalcitonin-negative.
Follow blood cultures
Sputum culture.
Alcohol use disorder-
EtOH levels-190. Alcohol intoxication upon admission.
Monitor for delirium tremens-continue MSAs protocol, lorazepam as needed.
Psychiatry recommends inpatient rehab and management, consultation for BKA.
Patient has suicidal ideation but does not have an active plan for ideation.
Pancytopenia-
Secondary to alcohol use. No previous workup.
Normocytic anemia-
Check iron, vitamin B12 levels.
Trend H&H, hemoglobin at 7.7 from 9.2 yesterday.
Monitor H&H closely.
Maintain hemoglobin greater than 7.
If Hb falls less than 7, FOBT.
Empiric PPI for now.
Polyarthralgia-
Prior workup negative for SCOTT, RF.
Had mild elevation of ESR and CRP. No rheumatology follow-up.
Medrol taper from primary care.
Inflammatory markers-uric acid level, SCOTT, RF, CPK-repeat.
PT evaluation.
COPD
Doubt exacerbation as patient presents with no wheezing.
Imaging with bilateral/multifocal pneumonia as above.
Continue preadmission regimen including Symbicort and albuterol nebs.
Essential hypertension.
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
Monitor BP trend.
DVT prophylaxis Lovenox
Full code.
Anticipated Discharge: > 48 hours
Subjective/Interval History
-
Date of Service: October 13, 2023
Patient reports feeling tired, weak.
He denies having any fresh blood in the stool, dark-colored stools, feeling constipated or having diarrhea, nausea, emesis, bloating, belching.
He denies any chest pain.
Objective Data
-
Labs:
Laboratory Results
10/13/23
07:26
WBC 6.5
Hgb 7.7 L
Hct 22.9 L
Plt Count 90 L D
Sodium 136
Potassium 3.8
Chloride 107
Carbon Dioxide 25
BUN 17
Creatinine 0.9
Glucose 179 H
Calcium 7.6 L
Vital Signs:
Vital Signs
Temp Pulse Resp BP Pulse Ox
98.1 F 93 26 141/73 97
10/13/23 11:55 10/13/23 07:33 10/13/23 07:33 10/13/23 07:33 10/13/23 11:55
[2023-10-13] MEDS: UNASYN IV ×2 (14:27→21:25)
[2023-10-13] MEDS: LOVENOX 40 MG SC (17:17)
[2023-10-13] MEDS: VIBRAMYCIN 100 MG PO (21:25)
--- NOTE | 2023-10-13 23:07 | W.PN.UPDATE ---
Update Note
Progress Note Update
Pt was on 1:1 overnight for SI w/o plan
PT was seen by psych. It was told by previous RN that psych dc 1:1, but never stopped official order.
RN states pt has not been on 1:1 since noon. PT has been stable.
Will dc 1:1 order and continue to observe closely
[2023-10-14] MEDS: COREG 6.25 MG PO ×3 (00:49→21:39)
[2023-10-14] MEDS: MELATONIN 5 MG PO (00:49)
[2023-10-14] MEDS: UNASYN IV ×4 (02:56→18:17)
[2023-10-14 03:29] VITALS: BP 163/88
[2023-10-14 07:26] LABS: % Basophils 0.2 % (0-2); % Eosinophils 0.5 % (0-6); % Immature Granulocytes 0.2 % (0-0.5); % Lymphocytes 14.6 % (20.5-51.1); % Monocytes 3.9 % (1.7-9.3); % Neutrophils 80.6 % (42.2-75.2); Absolute Lymphocytes 0.6 10^3/uL (1.2-3.4); Absolute Monocytes 0.2 10^3/uL (0.1-0.6); Absolute Neutrophils 3.5 10^3/uL (1.4-6.5); Hematocrit 21.6 % (39.0-52.0); Hemoglobin 7.1 g/dL (13.0-18.0); Mean Corp Hgb Conc. 32.9 g/dL (33.0-37.0); Mean Corpuscular Hgb 30.6 pg (27.0-31.0); Mean Corpuscular Volume 93.1 fL (80.0-94.0); Mean Platelet Volume 10.6 fL (7.4-10.4); Nucleated Red Blood Cells % 0 % (-); Platelet Count 77 10^3/uL (130-400); Red Blood Cell Count 2.32 10^6/uL (4.70-6.10); Red Cell Dist. Width 16.2 % (11.5-14.5); White Blood Cell Count 4.3 10^3/uL (4.8-10.8)
[2023-10-14] MEDS: NSS 1000 IV (07:33)
[2023-10-14] MEDS: FOLVITE 1 MG PO (07:35)
[2023-10-14] MEDS: NICODERM TRANSDERMAL 21 MG TRANSDERM (07:35)
[2023-10-14] MEDS: MUCINEX 600 MG PO ×2 (07:35→21:38)
[2023-10-14] MEDS: VIBRAMYCIN 100 MG PO ×2 (07:35→21:39)
[2023-10-14] MEDS: THIAMINE INJECTION 200 MG IV ×2 (07:36→21:40)
[2023-10-14 07:40] VITALS: BP 154/87
[2023-10-14 07:40] LABS: Erythrocyte Sed Rate 116 mm/hour (0-20)
[2023-10-14 07:50] LABS: ALT (SGPT) 15 U/L (0-50); AST (SGOT) 26 U/L (17-59); Albumin 2.2 g/dl (3.5-5.0); Alkaline Phosphatase 98 U/L (38-126); Blood Urea Nitrogen 13 mg/dl (9-20); Calcium 7.8 mg/dl (8.4-10.2); Carbon Dioxide 23 mmol/L (22-30); Chloride 109 mmol/L (98-107); Creatine Phosphokinase 32 U/L (55-170); Estimated Creatinine Clearance 96 ml/min; Glucose 83 mg/dl (70-99); HDL Cholesterol 49 mg/dl; LDL Cholesterol, Calculated 72 mg/dl; Magnesium 1.3 mg/dl (1.6-2.3); Phosphorus 3.2 mg/dl (2.5-4.5); Potassium 3.6 mmol/L (3.5-5.1); Sodium 135 mmol/L (135-145); Total Bilirubin 0.4 mg/dl (0.2-1.3); Total Cholesterol 140 mg/dl (50-199); Total Protein 5.1 g/dl (6.3-8.2); Triglyceride 97 mg/dl (10-149); Uric Acid 4.9 mg/dl (3.5-8.5); Very Low Density Lipoprotein 19 mg/dl (0-30); eGFR > 60.00
[2023-10-14] MEDS: MAGNESIUM SULFATE 102 GRAMS IV (08:52)
--- NOTE | 2023-10-14 09:57 | W.PN.HOSP.TC ---
Addendum entered and electronically signed by Heriberto Marcial MD 10/14/23 14:36:
Patient seen and examined
Discussed with resident
Impression:
Presentation with fever, tachycardia.
Multifocal pneumonia.
Alcohol use disorder with risk for delirium tremens.
Possible clinical depression, not confirmed suicidal ideation
Pancytopenia
Suspect alcohol induced hepatic steatosis.
Chronic polyarthralgia
COPD asthma
Hypertension.
Hypomagnesemia
Plan:
Presentation with fever, tachycardia
Chest x-ray/CT scan with multifocal pneumonia.
Sepsis ruled out.
? If community-acquired versus aspiration in patient with alcohol intoxication.
Continue antibiotics covering aspiration and community-acquired pathogens with Unasyn and doxycycline
Follow blood cultures
Sputum culture.
Speech and swallow evaluation
Pancytopenia suspect secondary to alcohol use.
Chronic normocytic anemia
No prior history of workup or screening colonoscopy
Iron levels consistent with weeks picture of iron deficiency and anemia of chronic inflammation
IV iron
Folate.
Follow CBC
Consider packed red blood cell transfusion if hemoglobin falls consistently below 7.
Will require outpatient GI evaluation including colonoscopy.
Polyarthralgia
Prior rheumatologic workup negative for SCOTT and rheumatoid factor. Had mild elevation of sed rate and CRP. Referred but never follow-up with rheumatology as outpatient
Reports recent Medrol taper prescribed by primary physician
Noted with mildly elevated inflammatory markers: Sed rate/CRP. Normal uric acid level. Repeated SCOTT/Rf pending.
Suspect polyarthropathy due to either polyarticular gout versus pseudogout
Will start prednisone empirically at 20 mg.
Physical therapy evaluation
Alcohol use disorder
Suspect severe given hepatic steatosis
Alcohol intoxication upon admission.
Monitor for DT.
Continue MSAS protocol with lorazepam
Psychiatry consultation
Denies suicidal ideations
COPD
Doubt exacerbation as patient presents with no wheezing.
Imaging with bilateral/multifocal pneumonia as above.
Continue preadmission regimen including Symbicort and albuterol nebs.
Essential hypertension.
On Coreg WHIPPER.
Monitor BP trend.
Mild cardiomegaly on imaging. No prior history of CAD or CHF.
Will check pro CHF BNP. Consider echocardiogram
DVT prophylaxis Lovenox
Full code.
Original Note:
Today's Communication/Plan
-
Continue antibiotics for pneumonia.
Stop IV fluids.
Start IV Protonix.
Start ferrous gluconate infusions.
proBNP levels ordered, pending decision for echo.
Start prednisone at 20 mg.
Assessment / Plan
Assessment / Plan
Assessment -
58-year-old male admitted to the hospital for evaluation of active suicidal ideation without plan, alcohol intoxication.
Impression:
Pneumonia.
Alcohol use disorder with risk for delirium tremens.
MDD with suicidal ideation.
Alcoholic steatosis.
Pancytopenia.
Conditions WHIPPER-
Polymyalgia rheumatica-questionable no workup
COPD asthma
Hypertension.
Alcohol use disorder
Suicidal ideation, MDD.
Plan:
CAP-
Presentation with fever, tachycardia.
Chest d-seo-cyydssfna. CT scan-multifocal pneumonia.
SIRS positive, negative for sepsis.
Rule out pneumonia secondary to aspiration, speech therapy consulted. Speech and swallow evaluation.
Unasyn plus doxycycline.
Blood cultures pending.
Procalcitonin-negative.
Blood cultures and sputum cultures pending
Alcohol use disorder-
NSAIDs at 1-2.
Monitor for delirium tremens-continue MSAs protocol, lorazepam as needed.
Psychiatry recommends inpatient rehab and management, consultation for [facility].
Patient has suicidal ideation but does not have an active plan for ideation.
Pancytopenia-
Secondary to alcohol use. No previous workup.
Normocytic anemia-
Check iron, vitamin B12 levels.
Trend H&H, hemoglobin at 7. 1 from 9.7 on admission.
Monitor H&H closely.
Maintain hemoglobin greater than 7.
If Hb falls less than 7, FOBT pending.
Empiric PPI for now. IV iron supplementation started.
Polyarthralgia-
Prior workup negative for SCOTT, RF.
Had mild elevation of ESR and CRP. No rheumatology follow-up.
Restarted on prednisone.
Inflammatory markers-uric acid level within normal limits, CPK-within normal limits,
RF, CCP pending. Consult PT.
COPD
Doubt exacerbation as patient presents with no wheezing.
Imaging with bilateral/multifocal pneumonia as above.
Continue preadmission regimen including Symbicort and albuterol nebs.
Smoker-
100 pack years of smoking.
Dysuria-
Bladder scan order placed.
SOB on exertion-
Troponins within normal limits, EKG yesterday-sinus tachycardia
proBNP ordered.
Depending on proBNP levels will consider planning an echo in the a.m. tomorrow.
Essential hypertension.
On Coreg WHIPPER.
Monitor BP trend.
DVT prophylaxis Lovenox
Full code.
Anticipated Discharge: > 48 hours
Subjective/Interval History
-
Date of Service: October 14, 2023
Patient is much sober today. Patient reports that he drinks only 2 glasses of vodka a day or most of the times when he goes to parties with his friends.
Joint pains and aches started about 6 months ago in March as a first symptom, it started with swelling of small joints in his hands and then progressed gradually to his elbows and then to his shoulder joints. Towards April and he noticed
similar kind of progression in his lower limbs as well, and every time his joint swells he noticed a hyperpigmented rash on his small joints. His primary care started him on prednisone, every time he runs out of prednisone his joint pains are back.
Currently his symmetrical joint pains are about 8/10 in his shoulder and hip, about 6/10 in his elbows and knees. During the last 6 months he lost about 50 pounds, and was noticed to have anemia secondary to iron and folate deficiency, and
pancytopenia. His symmetrical weakness and pain is associated with shortness of breath on exertion since late April to early May and gradually worsened over the last 5 months, currently he cannot walk 10 steps without getting short of
breath. Currently has cough.
Also complains of pain in the lower abdomen, difficulty in passing urine, has the urge and pressure-like sensation to pass urine but could not get a good stream of urine flow for the last 5 months.
Patient has constipation, and passes bowel movements once in every 2 to 3 days.
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
He also reports to have severe back pain that makes it difficult for him to walk. Patient is currently living on food stamps and is unemployed secondary to his sickness.
smoked about 2 packs of cigarettes a day for 50 years, cut down smoking to 1 pack of cigarettes a day over the last 6 months. Also has silica exposure at work for about 30 years. Patient is also having chronic cough with mucoid sputum for about 5
months now.
Never received a screening colonoscopy.
Objective Data
-
Labs:
Laboratory Results
10/14/23
06:44
WBC 4.3 L
Hgb 7.1 L
Hct 21.6 L
Plt Count 77 L
Sodium 135
Potassium 3.6
Chloride 109 H
Carbon Dioxide 23
BUN 13
Creatinine 0.7
Glucose 83
Calcium 7.8 L
Total Bilirubin 0.4
AST 26
ALT 15
Alkaline Phosphatase 98
Vital Signs:
Vital Signs
Temp Pulse Resp BP Pulse Ox
99.2 F 83 16 154/87 95
10/14/23 07:40 10/14/23 07:40 10/14/23 07:40 10/14/23 07:40 10/14/23 07:40
I&O
10/13/23 10/14/23 10/15/23
06:59 06:59 06:59
Intake Total 480 / 480
Output Total 675 / 675
Balance -195 / -195
Review of Systems
-
History Source: Patient
Constitutional: Reports No Symptoms
EENT: Reports No Symptoms Reported
Respiratory: Reports Cough and Trouble Breathing
Abdomen/GI: Reports No Symptoms
Genitourinary: Reports Difficulty Voiding
Musculoskeletal: Reports Joint Pain, Arthralgias and Myalgias
Skin: Reports No Symptoms
Neuro: Reports No Symptoms
Hematologic / Lymphatic: Reports No Symptoms
Allergy / Immunology: Reports No Symptoms
Physical Exam
-
General: Well Developed, Well Nourished and Pain
HEENT: Normocephalic, Atraumatic and Moist Mucous Membranes
Respiratory: Wheezes and Rhonchi
Cardiac: Regular Rhythm and S1/S2; Negative Murmur, Rub or Gallop
GI: Soft
Genito-urinary: No Costovertebral Tender and Supra Pubic Tube (mild)
Musculoskeletal: No Clubbing, No Cyanosis, No Edema and Other (POM limited beyond 90 degrees at shoulder and hip bilaterally.)
Neuro: AO x 3, No Motor Deficits and Other (strength 3/5 in b/l UE, 4/5 in b/l LE, )
Psych: Calm
[2023-10-14 10:37] LABS: Iron 23 ug/dl (49-181); Percent Saturation 16 % (20-50); Total Iron Binding Capacity 141 ug/dl (261-462)
--- NOTE | 2023-10-14 11:10 | PN.CDI ---
CDI
- -
CDI:
Physician Documentation Request
Admit Date: 10/13/23 05:21
Dear Doctor Aggie,
Please review the following and provide your response in the progress notes.
Clinical Indicators:
Pt admitted with Pneumonia SIRS positive /Sepsis ruled out
Nutrition consult 10/12,' Pt reports lost 40 lbs but could not recall time frame. Pt was 139 lbs last admission. CBW: 123 lbs reflective of a 16 lb (12%) weight loss in 4 months, significant. Pt reports poor appetite for past few months, not
eating mostly drinking. Pt states having pain with poor appetite at the moment....RD unable to provide nutrition based physical assessment as speech needed to do evaluation. With weight loss of > 10% in month and < 75% estimated needs > 1 month pt
meets AND/ASPEN criteria for moderate protein calorie malnutrition of chronic illness. ...'
Based on the information, which of the following most accurately represents the patient's nutritional status?
Moderate Protein Calorie Malnutrition
Mild Protein calorie Malnutrition
Other (please specify)
S[place]etser Criteria (ACP Hospitalist 2017)
2 or more criteria must be present for either
non severe or severe malnutrition
Note that the criteria differs related to the
presence of an acute or chronic illness
Acute Illness Chronic Illness
Energy Intake Non Severe: <75% for >7 days Non Severe: <75% for >1 month
Severe: <50% for >5 days Severe: <75% for >1 month
Weight Loss Non Severe: 1-2% over 1 week Non Severe: 5% over 1 month
5% over 1 month 7.5% over 3 months
7.5% over 3 months 10% over 6 months
1 year N/A 20% over 1 year
Severe: >2% over 1 week Severe: >5% over 1 month
>5% over 1 month >7.5% over 3 months
>7.5% over 3 months >10% over 6 months
1 year N/A >20% over 1 year
Body Fat Non Severe: Mild Decrease Non Severe: Mild Loss
Severe: Moderate Decrease Severe: Severe Loss
Muscle Mass Non Severe: Mild Decrease Non Severe: Mild Loss
Severe: Moderate Decrease Severe: Severe Loss
Fluid Accumulation Non Severe: Mild Accumulation Non Severe: Mild Accumulation
Severe: Moderate to severe Severe: Moderate to severe
accumulation accumulation
Reduced Production Team Manager Strength Non Severe: N/A Non Severe: N/A
Severe: Measurably reduced Severe: Measurably reduced
Use of terms such as suspected, likely, concern for, or probable (associated with a specific diagnosis that is being evaluated, monitored, or treated as if it exists) are acceptable and can be coded in the inpatient setting, when documented at the
time of discharge.
Thank you,
Nathaly Sanches RN
CDI Specialist
[place] [facility]
Please use your independent medical judgment in providing your response.
[2023-10-14 11:15] VITALS: BP 155/82
--- NOTE | 2023-10-14 11:37 | W.PN.UPDATE ---
Update Note
Progress Note Update
patient seen chart reviewed. discussed w nursing who was concerned that patient had been on one to one. i had dc'ed the one to one when i saw him yesterday but somehow there was another one to one which had not been dc'ed. he is not suicidal. he
is however dismayed by how sick he feels physically. we talked about his many medical problems and i explained to him about the anemia and polyarthralgias needing to be assessed. amberly also has been febrile. he is hypertensive and copd does not help
matters. 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 he tends to minimize his etoh use but i pointed out to him that in the presence
of medical compromise it would not take much alcohol to worsen his conditions. he is very worried about his job 'how will i pay the bills?' he has applied for disability but only recently. from the perspective of withdrawal from etoh he seems to
be doing reasonably. i suspect the hypertension noted is more essential htn and that fever has other etiology. he does not appear to be tremulous sweating etc. will continue to follow. not clear to me that he needs antidepressants. my sense is
that his mood is more related to how bad he feels physically. will follow
[2023-10-14 11:51] LABS: Troponin I < 0.012 ng/ml
[2023-10-14 13:41] LABS: Urine Protein 31 mg/dl (0-12)
[2023-10-14] MEDS: PROTONIX IV 40 MG IV (13:54)
[2023-10-14] MEDS: FERRLECIT 110 MG IV (13:54)
[2023-10-14] MEDS: NSS (PRESERVATIVE FREE) 10 ML IV (13:54)
[2023-10-14] MEDS: DELTASONE 20 MG PO (13:55)
[2023-10-14 14:50] LABS: NT-proBNP 7120 pg/ml
[2023-10-14 15:23] VITALS: BP 152/94
[2023-10-14] MEDS: MAGNESIUM SULFATE 50 IV (16:00)
--- NOTE | 2023-10-14 16:08 | CM ---
Met with patient daughter at the bedside; initial assessment and case management consult completed
Pharmacy verified: [facility], [facility]
Family Physician verified: Lindsey Morales MD; [address], [place];
Patient reports he lives in a multilevel home; daughterXenia, lives with him; 2 steps to enter; 13 steps between floors; inside railings present
Patient's bedroom and bathroom on the first floor of the home; bath has tub with shower; grab bar
PLOF: reports he is independent with ADLs and ambulation; does not go up or down stairs in the house due to SOB
DME: nebulizer
SNF/Rehab/Home Health utilization history: voluntary admission to rehab into [facility] in 2022
[facility] counseling offered; patient agreeable; referral submitted to [facility] counselor financial administration officer via phone
Transporation: daughter will provide ride home
Plan: will most likely discharge to home when medically stable; CM will monitor for needs/services at discharge
--- NOTE | 2023-10-14 16:14 | W.PN.UPDATE ---
Update Note
Progress Note Update
Patient's Pro BNP is at 7210. baseline pro BNP on 05/22/23 - 120, repeat pro BNP - on 05/23/23 - 1969. Progressive SOB on exertion.
2D echo ordered.
Results pending.
? alcoholic cardiomyopathy vs ischemic vs auto immune etiology.
[2023-10-14] MEDS: LOVENOX 40 MG SC (18:17)
[2023-10-14 19:00] VITALS: BP 151/80
[2023-10-14] MEDS: SYMBICORT 160/4.5 MCG INHALER 2 PUFF INH (19:41)
[2023-10-14] MEDS: TYLENOL 650 MG PO (21:42)
[2023-10-14 23:00] VITALS: BP 164/80
[2023-10-15] VITALS (9 sets, daily range): BP systolic 123–190; BP diastolic 80–98
[2023-10-15] MEDS: UNASYN IV ×5 (00:25→23:32)
[2023-10-15] MEDS: MOTRIN 400 MG PO (04:39)
[2023-10-15 06:01] LABS: % Immature Granulocytes 0.8 % (0-0.5); % Lymphocytes 12.1 % (20.5-51.1); % Monocytes 6.8 % (1.7-9.3); % Neutrophils 80.3 % (42.2-75.2); Absolute Lymphocytes 0.3 10^3/uL (1.2-3.4); Absolute Monocytes 0.2 10^3/uL (0.1-0.6); Absolute Neutrophils 2.1 10^3/uL (1.4-6.5); Mean Corp Hgb Conc. 33.5 g/dL (33.0-37.0); Mean Corpuscular Hgb 31.1 pg (27.0-31.0); Mean Corpuscular Volume 92.9 fL (80.0-94.0); Mean Platelet Volume 11.4 fL (7.4-10.4); Nucleated Red Blood Cells % 0 % (-); Platelet Count 67 10^3/uL (130-400); Red Blood Cell Count 2.25 10^6/uL (4.70-6.10); Red Cell Dist. Width 15.8 % (11.5-14.5); White Blood Cell Count 2.7 10^3/uL (4.8-10.8)
[2023-10-15 06:21] LABS: ALT (SGPT) 14 U/L (0-50); AST (SGOT) 16 U/L (17-59); Albumin 2.2 g/dl (3.5-5.0); Alkaline Phosphatase 96 U/L (38-126); Blood Urea Nitrogen 9 mg/dl (9-20); Calcium 7.8 mg/dl (8.4-10.2); Carbon Dioxide 21 mmol/L (22-30); Chloride 108 mmol/L (98-107); Estimated Creatinine Clearance 112 ml/min; Glucose 372 mg/dl (70-99); Magnesium 1.8 mg/dl (1.6-2.3); Potassium 3.8 mmol/L (3.5-5.1); Sodium 134 mmol/L (135-145); Total Bilirubin 0.2 mg/dl (0.2-1.3); Total Protein 4.9 g/dl (6.3-8.2); eGFR > 60.00
[2023-10-15 06:24] LABS: Hematocrit 20.9 % (39.0-52.0)
--- NOTE | 2023-10-15 06:47 | PTCARENOTE ---
Critical HCT 20.9, BELINDA Hannah aware.
[2023-10-15] MEDS: SYMBICORT 160/4.5 MCG INHALER 2 PUFF INH ×2 (07:50→19:44)
[2023-10-15] MEDS: COREG 6.25 MG PO ×2 (09:01→18:47)
[2023-10-15] MEDS: MUCINEX 600 MG PO ×2 (09:02→20:40)
[2023-10-15] MEDS: DELTASONE 20 MG PO (09:02)
[2023-10-15] MEDS: NICODERM TRANSDERMAL 21 MG TRANSDERM (09:02)
[2023-10-15] MEDS: FOLVITE 1 MG PO (09:02)
[2023-10-15] MEDS: THIAMINE INJECTION 200 MG IV ×2 (09:03→20:40)
[2023-10-15] MEDS: PROTONIX IV 40 MG IV (09:03)
[2023-10-15] MEDS: VIBRAMYCIN 100 MG PO ×2 (09:03→20:40)
[2023-10-15] MEDS: NSS (PRESERVATIVE FREE) 10 ML IV (09:03)
[2023-10-15 11:13] LABS: Troponin I < 0.012 ng/ml
[2023-10-15] MEDS: FERRLECIT 110 MG IV (12:59)
--- NOTE | 2023-10-15 13:24 | W.PN.UPDATE ---
Update Note
Progress Note Update
patient seen chart reviewed. from the perspective of etoh wd patient is doing reasonably. his bp was high this am but this afternoon has come down this afternoon. my sense is that this may be essential htn as he does not appear to be in wd
distress. he is concerned about physical illnesses which are being addressed. he is saying things like 'i have no cravings (for etoh) as if to say it will be easy to stay sober. i continue to tell him that being here and having no cravings is one
thing but being home and staying sober is another. he really should consider etoh rehab although he says he has been there and done that. will continue to encourage.
--- NOTE | 2023-10-15 15:17 | W.PN.HOSP.TC ---
Today's Communication/Plan
-
Monitor for recurrent VTE.
Replete magnesium
Transfuse 1 unit of packed red blood cells and follow CBC
Continue IV iron
Continue IV antibiotics.
Cardiology evaluation
Systemic steroids/prednisone for polyarthropathy.
Physical therapy evaluation
Assessment / Plan
Assessment / Plan
Impression:
Presentation with fever, tachycardia.
Multifocal pneumonia.
Nonsustained ventricular tachycardia.
Alcohol use disorder with risk for delirium tremens.
Possible clinical depression, not confirmed suicidal ideation
Pancytopenia
Suspect alcohol induced hepatic steatosis.
Chronic polyarthralgia
COPD asthma
Hypertension.
Hypomagnesemia
Mild protein calorie malnutrition
Plan:
Presentation with fever, tachycardia
Chest x-ray/CT scan with multifocal pneumonia.
Sepsis ruled out.
? If community-acquired versus aspiration in patient with alcohol intoxication.
Continue antibiotics covering aspiration and community-acquired pathogens with Unasyn and doxycycline
Follow blood cultures negative to date
Speech and swallow evaluation appreciated
Episode of nonsustained ventricular tachycardia without symptoms on 10/14
Negative troponins
Echocardiogram with preserved biventricular function and no left-ventricular wall motion abnormalities.
Continue cardiac monitoring
Replete magnesium
Transfuse to keep hemoglobin above 8.
Cardiology evaluation
Pancytopenia suspect secondary to alcohol use.
Chronic normocytic anemia
No prior history of workup or screening colonoscopy
Iron levels consistent with weeks picture of iron deficiency and anemia of chronic inflammation
IV iron
Folate.
Transfuse to keep hemoglobin above 8. 1 unit of packed red blood cells ordered on 10/14
Consider packed red blood cell transfusion if hemoglobin falls consistently below 7.
Will require outpatient GI evaluation including colonoscopy.
Polyarthralgia
Prior rheumatologic workup negative for SCOTT and rheumatoid factor. Had mild elevation of sed rate and CRP. Referred but never follow-up with rheumatology as outpatient
Reports recent Medrol taper prescribed by primary physician
Noted with mildly elevated inflammatory markers: Sed rate/CRP. Normal uric acid level. Repeated SCOTT/Rf pending.
Suspect polyarthropathy due to either polyarticular gout versus pseudogout
Initiated on prednisone empirically at 20 mg.
Physical therapy evaluation
Steroid-induced hyperglycemia
Check hemoglobin A1c.
Basal bolus protocol
Alcohol use disorder
Suspect severe given hepatic steatosis
Alcohol intoxication upon admission.
Monitor for DT.
Continue MSAS protocol with lorazepam
Psychiatry consultation
Denies suicidal ideations
COPD
Doubt exacerbation as patient presents with no wheezing.
Imaging with bilateral/multifocal pneumonia as above.
Continue preadmission regimen including Symbicort and albuterol nebs.
Essential hypertension.
On Coreg RECEPTIONIST DOCTOR'S OFFICE.
Monitor BP trend.
Mild cardiomegaly on imaging. No prior history of CAD or CHF.
Will check pro CHF BNP. Consider echocardiogram
DVT prophylaxis Lovenox
Full code.
Anticipated Discharge: 24 - 48 hours
Subjective/Interval History
-
Date of Service: October 15, 2023
Objective Data
-
Labs:
Laboratory Results
10/15/23
05:20
WBC 2.7 L
Hgb 7.0 L
Hct 20.9 L*
Plt Count 67 L
Sodium 134 L
Potassium 3.8
Chloride 108 H
Carbon Dioxide 21 L
BUN 9
Creatinine 0.6 L
Glucose 372 H
Calcium 7.8 L
Total Bilirubin 0.2
AST 16 L
ALT 14
Alkaline Phosphatase 96
Vital Signs:
Vital Signs
Temp Pulse Resp BP Pulse Ox
98.4 F 63 18 123/89 98
10/15/23 11:00 10/15/23 11:00 10/15/23 11:00 10/15/23 11:00 10/15/23 11:00
I&O
10/14/23 10/15/23 10/16/23
06:59 06:59 06:59
Intake Total 480 / 480 2019
Output Total 675 / 675 1235 / 1235
Balance -195 / -195 785 / 785
Physical Exam
-
General: Well Developed and No Apparent Distress
HEENT: Normocephalic, Atraumatic and Moist Mucous Membranes
Respiratory: Clear to Auscultation
Cardiac: Regular Rhythm and S1/S2; Negative Murmur, Rub or Gallop
GI: Soft, Nontender, Nondistended and Normal Bowel Sounds; Negative Organomegaly
Rectal: Deferred by Provider
Musculoskeletal: No Clubbing, No Cyanosis and No Edema
Skin: Negative Rash
Neuro: Nonfocal/Grossly Intact
--- NOTE | 2023-10-15 16:32 | PTCARENOTE ---
13 beats Vtach. Pt sleeping and symptomatic. VS stable. Dr Marcial aware.
[2023-10-15 17:14] LABS: Glucose - Point of Care 451 mg/dl (70-99)
[2023-10-15] MEDS: LOVENOX 40 MG SC (18:04)
[2023-10-15 18:06] LABS: Glucose 386 mg/dl (70-99)
[2023-10-15] MEDS: NOVOLOG FLEXPEN-LOW RESISTANCE 5 UNITS SC (18:48)
[2023-10-15] MEDS: MAGNESIUM OXIDE 500 MG PO (20:40)
[2023-10-15 21:26] LABS: Glucose - Point of Care 483 mg/dl (70-99)
[2023-10-15 22:01] LABS: CCP Antibody IgG/IgA 5 Units (0-19)
[2023-10-15 22:24] LABS: Glucose 366 mg/dl (70-99)
[2023-10-15] MEDS: APRESOLINE 5 MG IV (23:32)
[2023-10-15] MEDS: NOVOLOG FLEXPEN 10 UNITS SC (23:34)
[2023-10-16] VITALS (8 sets, daily range): BP systolic 163–185; BP diastolic 80–101
[2023-10-16 01:51] LABS: Glucose - Point of Care 178 mg/dl (70-99)
[2023-10-16] MEDS: UNASYN IV ×3 (05:32→17:18)
[2023-10-16 07:16] LABS: Glucose - Point of Care 118 mg/dl (70-99)
[2023-10-16] MEDS: SYMBICORT 160/4.5 MCG INHALER 2 PUFF INH ×2 (07:16→19:46)
[2023-10-16] MEDS: NOVOLOG FLEXPEN-LOW RESISTANCE SC ×2 (07:17→17:35)
[2023-10-16 07:19] LABS: % Basophils 0.3 % (0-2); % Eosinophils 0.3 % (0-6); % Immature Granulocytes 0.8 % (0-0.5); % Lymphocytes 18.2 % (20.5-51.1); % Monocytes 6.6 % (1.7-9.3); % Neutrophils 73.8 % (42.2-75.2); Absolute Lymphocytes 0.7 10^3/uL (1.2-3.4); Absolute Monocytes 0.3 10^3/uL (0.1-0.6); Absolute Neutrophils 2.9 10^3/uL (1.4-6.5); Hematocrit 23.8 % (39.0-52.0); Mean Corp Hgb Conc. 33.6 g/dL (33.0-37.0); Mean Corpuscular Volume 86.2 fL (80.0-94.0); Mean Platelet Volume 10.5 fL (7.4-10.4); Nucleated Red Blood Cells % 0 % (-); Platelet Count 79 10^3/uL (130-400); Red Blood Cell Count 2.76 10^6/uL (4.70-6.10); Red Cell Dist. Width 19.9 % (11.5-14.5); White Blood Cell Count 3.9 10^3/uL (4.8-10.8)
[2023-10-16 07:42] LABS: Blood Urea Nitrogen 13 mg/dl (9-20); Calcium 8.4 mg/dl (8.4-10.2); Carbon Dioxide 25 mmol/L (22-30); Chloride 108 mmol/L (98-107); Estimated Creatinine Clearance 112 ml/min; Glucose 94 mg/dl (70-99); Potassium 3.6 mmol/L (3.5-5.1); Sodium 137 mmol/L (135-145); eGFR > 60.00
[2023-10-16] MEDS: DELTASONE 20 MG PO (07:50)
[2023-10-16] MEDS: MUCINEX 600 MG PO ×2 (07:50→21:26)
[2023-10-16] MEDS: PROTONIX 20 MG PO (07:50)
[2023-10-16] MEDS: VITAMIN B1 100 MG PO ×2 (07:50→21:25)
[2023-10-16] MEDS: NICODERM TRANSDERMAL 21 MG TRANSDERM (07:50)
[2023-10-16] MEDS: VIBRAMYCIN 100 MG PO ×2 (07:50→21:25)
[2023-10-16] MEDS: FOLVITE 1 MG PO (07:50)
[2023-10-16] MEDS: MAGNESIUM OXIDE 500 MG PO ×2 (07:50→21:26)
[2023-10-16] MEDS: COREG 6.25 MG PO ×2 (07:50→21:25)
[2023-10-16 10:17] LABS: Glycohemoglobin (HgbA1c) 6.6 % (4.0-5.6)
--- NOTE | 2023-10-16 11:26 | W.PN.UPDATE ---
Update Note
Progress Note Update
patient seen chart reviewed. spoke to nursing. friend at bedside. tried to explain to patient who is only agreeing to out pt rx of his alcoholism that the stakes are very high here. in addition to the long list of medical issues already noted by
psych yesterday he had a long run of v tach which is being addressed. he does not seem to get that sobriety is of the utmost importance here and bc he has no cravings in the hospital that does not secure his sobriety when he leaves here. he is not
withdrawing from etoh at this point. that has not really been a big issue here but he does not have the tools at this point to maintain sobriety in my estimation
--- NOTE | 2023-10-16 11:41 | CON.CAR ---
Consultation
Consultation Request
Date/Time Consultation Requested: 10/15/23 4:00pm
Date/Time Consultation Performed: 10/16/23 11:00am
Requesting Provider: Dr. Marcial
Performing Provider: Dr Fortune
Reason for Consultation: NSVT
Medical History
-
Chief Complaint: fever/cough
History of Present Illness:
58-year-old male with past medical history of polyarthralgia, alcohol abuse, tobacco use, hypertension, depression, and COPD presents to [facility] with fever, tachycardia, and cough. A workup ensued and chest x-ray and CT scan suggested
multifocal pneumonia. He was treated with antibiotics and slowly improved. He denied any chest pains. His breathing has been improving. On October 14 he had an episode of 12 beats of nonsustained ventricular tachycardia. The patient did not feel
it. He has no palpitations. He has been hospitalized for several days. He denies any shakes, withdrawal symptoms, or hallucinations. He states he is relatively active and ambulates with no chest pains or shortness of breath. He does have
depression. He does smoke a pack of cigarettes daily. He was also found to have pancytopenia presumably from alcohol abuse. He denies any leg edema
Past Medical History
Past Medical History: COPD, HTN and Other (Polyarthralgia, depression, alcohol and tobacco abuse)
Past Surgical History: None
Social History
Tobacco: Smoker (1ppd)
Alcohol: Daily
Drug: Marijuana
Employment: Not Employed
Family History
Family History: Hypertension
Allergies / Home Medications
Allergy/AdvReac Type Severity Reaction Status Date / Time
No Known Allergies Allergy Verified 07/22/23 07:19
�Medication �Instructions �Recorded �Confirmed �Type
carvedilol 6.25 mg tablet 6.25 mg PO BID #60 tabs 05/25/23 10/13/23 Rx
albuterol sulfate 90 mcg/actuation 2 puff inhalation Q4HPRN PRN 10/13/23 10/13/23 History
aerosol inhaler SHORTNESS OF BREATH
budesonide-formoterol HFA 160 2 puff inhalation BID 10/13/23 10/13/23 History
mcg-4.5 mcg/actuation aerosol Lung/Breathing Issues
inhaler (Symbicort)
ferrous sulfate 325 mg (65 mg 325 mg PO DAILY Supplement 10/13/23 10/13/23 History
iron) tablet
folic acid 400 mcg tablet 0.4 mg PO DAILY Supplement 10/13/23 10/13/23 History
multivitamin 1 tab PO DAILY Supplement 10/13/23 10/13/23 History
Review of Systems
-
History Source: Patient
Constitutional: Fever and Fatigue
EENT: No Symptoms
Respiratory: Cough and Trouble Breathing
Cardiac: No Symptoms
Abdomen/GI: Abdominal Pain
: No Symptoms
Musculoskeletal: No Symptoms
Skin: No Symptoms
Neurological: No Symptoms
Endocrine: No Symptoms
Hematologic/Lymphatic: No Symptoms
Physical Exam
Vital Signs
Temp Pulse Resp BP Pulse Ox
98.1 F 72 15 165/92 98
10/16/23 07:00 10/16/23 07:18 10/16/23 07:18 10/16/23 07:00 10/16/23 07:00
Lab Results
10/16/23 06:19
10/16/23 06:19
Troponin I < 0.012 ng/ml 10/15/23 10:42
Ekr-I-Xhiznarfuma Pept Cancelled 10/14/23 12:52
Physical Exam
General: Well Developed and No Apparent Distress
HEENT: Normocephalic and Anicteric
Respiratory: Rhonchi
Cardiac: S1/S2 and Regular Rhythm
GI: Soft, Non Tender and Non Distended
Genito-urinary: No Costovertebral Tender
Musculoskeletal: No Edema
Skin: Warm and Dry
Neuro: AO x 3
Hematologic/Lymphatic: No Lymphadenopathy
Psych: Calm
Impression / Plan
-
Assess:
Nonsustained ventricular tachycardia
Alcohol abuse
Pancytopenia
Multifocal pneumonia
Depression
Anemia
Chronic polyarthralgia
Likely alcohol induced fatty liver
Cough/shortness of breath
elevated pro-bnp
Echocardiogram October 14, 2023, EF 54%, normal RV function, PA pressure 30-35
PLan:
He presents with an episode of nonsustained ventricular tachycardia in the setting of alcohol abuse, pancytopenia, and multifocal pneumonia.
EKG has normal sinus rhythm with sinus bradycardia and a normal QT interval.
Continue Unasyn and doxycycline.
His ejection fraction is overall preserved and heart rates in the 60s. I will continue Coreg 6.25 mg twice daily.
His proBNP is significantly elevated we will try Lasix 40 mg IV 1 to see if this helps his breathing.
Continue inhalers and prednisone for his polyarthralgia.
We discussed the importance of quitting alcohol and tobacco.
He likely should have a noninvasive stress test as an outpatient when he recovers from his pneumonia.
Data Reviewed
-
EKG: Tracing Personally Visualized and interpreted
Radiology: Report Reviewed by me
Medical Tests (Nuc Med, Echo etc): Image Personally Visualized and interpreted
Labs: Labs Reviewed by me
Old Records: Reviewed
--- NOTE | 2023-10-16 11:44 | W.PN.HOSP.TC ---
Today's Communication/Plan
-
cont abx
d/c planning
keep K > 4 and mag > 2
Assessment / Plan
Assessment / Plan
Impression:
Presentation with fever, tachycardia.
Multifocal pneumonia.
Nonsustained ventricular tachycardia.
Alcohol use disorder with risk for delirium tremens.
Possible clinical depression, not confirmed suicidal ideation
Pancytopenia
Suspect alcohol induced hepatic steatosis.
Chronic polyarthralgia
COPD asthma
Hypertension.
Hypomagnesemia
Mild protein calorie malnutrition
Plan:
Presentation with fever, tachycardia--urine culture also positive so has Enterococcus faecalis UTI
Chest x-ray/CT scan with multifocal pneumonia.
Sepsis ruled out.
? If community-acquired versus aspiration in patient with alcohol intoxication.
Continue antibiotics covering aspiration and community-acquired pathogens with Unasyn and doxycycline
Follow blood cultures negative to date
Speech and swallow evaluation appreciated
Episode of nonsustained ventricular tachycardia without symptoms on 10/14--likely due to ETOH and hypomagnesemia
Negative troponins
Echocardiogram with preserved biventricular function and no left-ventricular wall motion abnormalities.
Continue cardiac monitoring
Replete magnesium
Transfuse to keep hemoglobin above 8.
Cardiology evaluation apprec
Pancytopenia suspect secondary to alcohol use.
Chronic normocytic anemia
No prior history of workup or screening colonoscopy
Iron levels consistent with weeks picture of iron deficiency and anemia of chronic inflammation
IV iron
Folate.
Transfuse to keep hemoglobin above 8. 1 unit of packed red blood cells ordered on 10/14
Consider packed red blood cell transfusion if hemoglobin falls consistently below 7.
Will require outpatient GI evaluation including colonoscopy.
Polyarthralgia
Prior rheumatologic workup negative for SCOTT and rheumatoid factor. Had mild elevation of sed rate and CRP. Referred but never follow-up with rheumatology as outpatient
Reports recent Medrol taper prescribed by primary physician
Noted with mildly elevated inflammatory markers: Sed rate/CRP. Normal uric acid level. Repeated SCOTT/Rf pending.
Suspect polyarthropathy due to either polyarticular gout versus pseudogout
Initiated on prednisone empirically at 20 mg.
Physical therapy evaluation
Steroid-induced hyperglycemia
Check hemoglobin A1c.
Basal bolus protocol
Alcohol use disorder
Suspect severe given hepatic steatosis
Alcohol intoxication upon admission.
Monitor for DT.
Continue MSAS protocol with lorazepam
Psychiatry consultation apprec --pt refusing to go to [facility]--explained alcohol is poison to him...still refusing--seems to be in denial that ETOH is causing all of this.....
Denies suicidal ideations
COPD
Doubt exacerbation as patient presents with no wheezing.
Imaging with bilateral/multifocal pneumonia as above.
Continue preadmission regimen including Symbicort and albuterol nebs.
Essential hypertension.
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
Monitor BP trend.
Mild cardiomegaly on imaging. No prior history of CAD or CHF.
Will check pro CHF BNP. Echocardiogram with preserved EF 54% with elevated pulm artery pressure
DVT prophylaxis Lovenox
Full code.
Anticipated Discharge: > 48 hours
Subjective/Interval History
-
Date of Service: October 16, 2023
pt in denial that alcohol is causing all of his problems
Objective Data
-
Labs:
Laboratory Results
10/16/23
06:19
WBC 3.9 L
Hgb 8.0 L
Hct 23.8 L
Plt Count 79 L
Sodium 137
Potassium 3.6
Chloride 108 H
Carbon Dioxide 25
BUN 13
Creatinine 0.6 L
Glucose 94
Calcium 8.4
Vital Signs:
max temp for 24 hours
10/15/23
23:28
Temp 99.4 F
Vital Signs
Temp Pulse Resp BP Pulse Ox
98.1 F 72 15 165/92 98
10/16/23 07:00 10/16/23 07:18 10/16/23 07:18 10/16/23 07:00 10/16/23 07:00
I&O
10/15/23 10/16/23 10/17/23
06:59 06:59 06:59
Intake Total 2019 2580 / 2580
Output Total 1235 / 1235 925 / 925
Balance 785 / 785 1655 / 1655
Review of Systems
-
All other systems: Reviewed and negative
Physical Exam
-
General: Well Developed, Well Nourished, No Apparent Distress and Appears Chronically Ill
HEENT: Normocephalic and Atraumatic
Respiratory: Clear to Auscultation; Negative Wheezes or Rhonchi
Cardiac: Regular Rhythm, S1/S2 and Murmur
GI: Soft, Nontender, Nondistended and Normal Bowel Sounds
Musculoskeletal: No Clubbing, No Cyanosis and No Edema
Skin: Warm
Neuro: Awake and Alert
[2023-10-16 11:55] LABS: Glucose - Point of Care 283 mg/dl (70-99)
[2023-10-16] MEDS: NOVOLOG FLEXPEN-LOW RESISTANCE 3 UNITS SC (11:57)
[2023-10-16] MEDS: KCL 40 MEQ PO (12:09)
[2023-10-16] MEDS: LASIX 40 MG IV (12:10)
[2023-10-16] MEDS: KCL PO (12:21)
[2023-10-16] MEDS: FERRLECIT 110 MG IV (13:45)
[2023-10-16 16:55] LABS: Glucose - Point of Care 435 mg/dl (70-99)
[2023-10-16] MEDS: APRESOLINE 5 MG IV (17:15)
[2023-10-16] MEDS: LOVENOX 40 MG SC (17:18)
[2023-10-16 17:26] LABS: Glucose 361 mg/dl (70-99)
[2023-10-16] MEDS: NOVOLOG FLEXPEN-MODERATE RESISTANCE 9 UNITS SC (17:39)
[2023-10-16 19:39] LABS: Glucose - Point of Care 494 mg/dl (70-99)
[2023-10-16 21:02] LABS: Glucose 241 mg/dl (70-99)
[2023-10-16] MEDS: NOVOLOG FLEXPEN 5 UNITS SC (21:27)
[2023-10-16 23:29] LABS: Glucose - Point of Care 66 mg/dl (70-99)
[2023-10-16 23:53] LABS: Glucose - Point of Care 71 mg/dl (70-99)
[2023-10-17] VITALS (9 sets, daily range): BP systolic 136–190; BP diastolic 72–113; PULSE 83–89; O2SAT 94–95
[2023-10-17] MEDS: UNASYN IV ×5 (00:13→23:31)
--- NOTE | 2023-10-17 00:23 | GLUCOSE ---
193 repeat accucheck done, result was 'RR', stat glucose ordered.
2099 Pt's stat glucose resulted for 241. Ny TREVINO notified, 5 units novolog given.
0 Repeat accucheck 66, orange juice given per protocol. Pt asymptomatic.
2344 accucheck 71. given additional orange juice and snack.
[2023-10-17] MEDS: APRESOLINE 5 MG IV ×3 (01:23→23:30)
[2023-10-17 01:39] LABS: Glucose - Point of Care 133 mg/dl (70-99)
[2023-10-17 06:55] LABS: Mean Corp Hgb Conc. 34.6 g/dL (33.0-37.0); Mean Corpuscular Volume 86.7 fL (80.0-94.0); Platelet Count 84 10^3/uL (130-400); Red Cell Dist. Width 19.9 % (11.5-14.5); White Blood Cell Count 2.9 10^3/uL (4.8-10.8)
[2023-10-17 07:08] LABS: Glucose - Point of Care 103 mg/dl (70-99)
[2023-10-17 07:38] LABS: ALT (SGPT) 16 U/L (0-50); AST (SGOT) 29 U/L (17-59); Albumin 2.6 g/dl (3.5-5.0); Alkaline Phosphatase 106 U/L (38-126); Blood Urea Nitrogen 14 mg/dl (9-20); Calcium 8.7 mg/dl (8.4-10.2); Carbon Dioxide 26 mmol/L (22-30); Chloride 106 mmol/L (98-107); Estimated Creatinine Clearance 112 ml/min; Glucose 93 mg/dl (70-99); Magnesium 1.3 mg/dl (1.6-2.3); Phosphorus 2.3 mg/dl (2.5-4.5); Potassium 3.8 mmol/L (3.5-5.1); Sodium 137 mmol/L (135-145); Total Bilirubin 0.4 mg/dl (0.2-1.3); Total Protein 5.7 g/dl (6.3-8.2); eGFR > 60.00
[2023-10-17] MEDS: NOVOLOG FLEXPEN-MODERATE RESISTANCE SC (07:49)
[2023-10-17] MEDS: FOLVITE 1 MG PO (07:49)
[2023-10-17] MEDS: PROTONIX 20 MG PO (07:49)
[2023-10-17] MEDS: DELTASONE 20 MG PO (07:49)
[2023-10-17] MEDS: KCL 20 MEQ PO (07:49)
[2023-10-17] MEDS: MUCINEX 600 MG PO ×2 (07:49→20:03)
[2023-10-17] MEDS: NICODERM TRANSDERMAL 21 MG TRANSDERM (07:49)
[2023-10-17] MEDS: VIBRAMYCIN 100 MG PO ×2 (07:50→20:03)
[2023-10-17] MEDS: COREG 6.25 MG PO ×2 (07:50→20:03)
[2023-10-17] MEDS: MAGNESIUM OXIDE 500 MG PO ×2 (07:50→20:03)
[2023-10-17] MEDS: VITAMIN B1 100 MG PO ×2 (07:50→20:03)
[2023-10-17] MEDS: LASIX 40 MG IV (07:50)
[2023-10-17] MEDS: SYMBICORT 160/4.5 MCG INHALER 2 PUFF INH ×2 (08:09→19:11)
--- NOTE | 2023-10-17 11:13 | PTOTSP ---
PATIENT FUNCTIONING INDEPENDENTLY ON LEVEL SURFACES WELL ELEVATIONS REQUIRING NO FURTHER ACUTE CARE SKILLED P.T. AT THIS TIME. WILL DISCHARGE FROM P.T. SERVICES.
[2023-10-17] MEDS: NOVOLOG FLEXPEN-MODERATE RESISTANCE 3 UNITS SC (11:46)
--- NOTE | 2023-10-17 12:20 | W.PN.CARDCBS ---
Today's Communication / Plan
-
No further V. tach
Consider outpatient stress testing
Continue IV Lasix although unclear if weights are accurate and consider change to oral Lasix on 10/17
Impression / Plan
-
Assess:
Nonsustained ventricular tachycardia
Acute diastolic CHF
Alcohol abuse
Pancytopenia
Multifocal pneumonia
Depression
Anemia
Chronic polyarthralgia
Likely alcohol induced fatty liver
Cough/shortness of breath
Echocardiogram October 14, 2023, EF 54%, normal RV function, PA pressure 30-35
PLan:
He presents with an episode of nonsustained ventricular tachycardia in the setting of alcohol abuse, pancytopenia, and multifocal pneumonia.
He has no further V. tach
His ejection fraction is overall preserved. Continue Coreg 6.25 mg twice daily.
Unclear if he has CHF but will continue IV Lasix with elevated proBNP and unclear if weights are accurate
Consider change to oral Lasix on 10/17
Discussed with family at bedside
Needs to quit alcohol and tobacco.
He likely should have a noninvasive stress test as an outpatient when he recovers from his pneumonia.
Progress Note - Endocrinology Physician
Subjective
Date of Service: October 17, 2023
No complaints.
Objective
Labs:
10/17/23 05:33
10/17/23 05:33
Labs
Hgb 9.0 g/dL (13.0-18.0) L 10/17/23 05:33
Hct 26.0 % (39.0-52.0) L 10/17/23 05:33
Plt Count 84 10^3/uL (130-400) L 10/17/23 05:33
Sodium 137 mmol/L (135-145) 10/17/23 05:33
Potassium 3.8 mmol/L (3.5-5.1) 10/17/23 05:33
BUN 14 mg/dl (9-20) 10/17/23 05:33
Creatinine 0.6 mg/dL (0.7-1.3) L 10/17/23 05:33
Glucose 93 mg/dl (70-99) 10/17/23 05:33
Troponins
10/15/23
10:42
Troponin I < 0.012
Vital Signs and I&O:
Vital Signs
Temp Pulse Resp BP Pulse Ox
98.9 F 84 14 139/72 94
10/17/23 07:40 10/17/23 08:11 10/17/23 08:11 10/17/23 07:40 10/17/23 08:11
Vital Signs
Temp Pulse Resp BP Pulse Ox
98.9 F 84 14 139/72 94
10/17/23 07:40 10/17/23 08:11 10/17/23 08:11 10/17/23 07:40 10/17/23 08:11
Intake & Output
10/15/23 10/16/23 10/17/23 10/18/23
06:59 06:59 06:59 06:59
Intake Total 2019 / 2019 2580 / 2580 1650 / 1650
Output Total 1235 / 1235 925 / 925 1100 / 1100
Balance 785 / 785 1655 / 1655 550 / 550
Physical Exam
Physical Exam
General: Well developed, well nourished in NAD.
Neck: Supple, no JVD, HJR, carotids +2 B/L, no bruits bilaterally.
Heart: Non displaced PMI, RRR, no murmurs, No S3, S4, no rubs.
Lungs: Clear to auscultation bilaterally, no wheeze, rhonchi, rubs bilaterally,
normal expiratory phase.
Extremities: No clubbing, cyanosis or edema bilaterally.
Neuro: Grossly nonfocal, awake, alert and oriented x3.
--- NOTE | 2023-10-17 12:50 | CM ---
Reviewed chart, patient functioning at baseline level of care per PT/OT. Will be able to return home when medically cleared.
Plan: Case management will continue to follow and assist with discharge planning. Patient should be able to return home, no needs.
[2023-10-17 13:11] LABS: Glucose - Point of Care 247 mg/dl (70-99)
[2023-10-17] MEDS: FERRLECIT 110 MG IV (14:23)
[2023-10-17 16:17] LABS: Glucose - Point of Care 340 mg/dl (70-99)
[2023-10-17] MEDS: NOVOLOG FLEXPEN-MODERATE RESISTANCE 7 UNITS SC (16:17)
[2023-10-17 16:39] LABS: Rheumatoid Agglutinin Less Than 10 IU (<10 IU)
[2023-10-17] MEDS: LOVENOX 40 MG SC (17:11)
--- NOTE | 2023-10-17 18:08 | W.PN.HOSP.TC ---
Today's Communication/Plan
-
Overall improved with stable respiratory status
Continue IV antibiotics.
Continue IV diuresis
Follow-up with chest x-ray/pro CHF BNP in a.m.
Physical therapy assessment.
Assessment / Plan
Assessment / Plan
Impression:
Presentation with fever, tachycardia.
Multifocal pneumonia.
Nonsustained ventricular tachycardia.
Alcohol use disorder with risk for delirium tremens.
Possible clinical depression, not confirmed suicidal ideation
Pancytopenia
Suspect alcohol induced hepatic steatosis.
Chronic polyarthralgia
COPD asthma
Hypertension.
Hypomagnesemia
Mild protein calorie malnutrition
Plan:
Presentation with fever, tachycardia
Chest x-ray/CT scan with multifocal pneumonia.
Sepsis ruled out.
? If community-acquired versus aspiration in patient with alcohol intoxication.
Continue antibiotics covering aspiration and community-acquired pathogens with Unasyn and doxycycline
Follow blood cultures negative to date
Speech and swallow evaluation appreciated
Enterococcus faecalis bacteriuria noted. Patient has been asymptomatic.
Episode of nonsustained ventricular tachycardia without symptoms on 10/14.
Negative troponins
Echocardiogram with preserved biventricular function and no left-ventricular wall motion abnormalities.
Suspect in the settings of EtOH, anemia, mild hypomagnesemia
Continue cardiac monitoring
Replete magnesium
Transfuse to keep hemoglobin above 8.
Cardiology evaluation apprec
Pancytopenia suspect secondary to alcohol use.
Chronic normocytic anemia
No prior history of workup or screening colonoscopy
Iron levels consistent with weeks picture of iron deficiency and anemia of chronic inflammation
IV iron
Folate.
Transfuse to keep hemoglobin above 8. 1 unit of packed red blood cells ordered on 10/14
Consider packed red blood cell transfusion if hemoglobin falls consistently below 7.
Will require outpatient GI evaluation including colonoscopy.
Polyarthralgia
Prior rheumatologic workup negative for SCOTT and rheumatoid factor. Had mild elevation of sed rate and CRP. Referred but never follow-up with rheumatology as outpatient
Reports recent Medrol taper prescribed by primary physician
Noted with mildly elevated inflammatory markers: Sed rate/CRP. Normal uric acid level. Repeated SCOTT/Rf pending.
Suspect polyarthropathy due to either polyarticular gout versus pseudogout
Initiated on prednisone empirically at 20 mg.
Physical therapy evaluation
Steroid-induced hyperglycemia
Check hemoglobin A1c.
Basal bolus protocol
Alcohol use disorder
Suspect severe given hepatic steatosis
Alcohol intoxication upon admission.
Monitor for DT.
Continue MSAS protocol with lorazepam
Psychiatry consultation apprec --pt refusing to go to [facility]--explained alcohol is poison to him...still refusing--seems to be in denial that ETOH is causing all of this.....
Denies suicidal ideations
COPD
Doubt exacerbation as patient presents with no wheezing.
Imaging with bilateral/multifocal pneumonia as above.
Continue preadmission regimen including Symbicort and albuterol nebs.
Essential hypertension.
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
Monitor BP trend.
Mild cardiomegaly on imaging. No prior history of CAD or CHF.
Will check pro CHF BNP. Echocardiogram with preserved EF 54% with elevated pulm artery pressure.
? If component of volume overload/diastolic CHF upon presentation.
Agree with IV diuresis
Will follow chest x-ray and CHF BNP on 10/17 in response to diuresis.
DVT prophylaxis Lovenox
Full code.
Anticipated Discharge: 24 - 48 hours
Subjective/Interval History
-
Date of Service: October 17, 2023
Objective Data
-
Labs:
Laboratory Results
10/17/23
05:33
WBC 2.9 L
Hgb 9.0 L
Hct 26.0 L
Plt Count 84 L
Sodium 137
Potassium 3.8
Chloride 106
Carbon Dioxide 26
BUN 14
Creatinine 0.6 L
Glucose 93
Calcium 8.7
Total Bilirubin 0.4
AST 29
ALT 16
Alkaline Phosphatase 106
Vital Signs:
Vital Signs
Temp Pulse Resp BP Pulse Ox
98.3 F 83 18 154/83 98
10/17/23 15:25 10/17/23 15:25 10/17/23 15:25 10/17/23 15:25 10/17/23 15:25
I&O
10/16/23 10/17/23 10/18/23
06:59 06:59 06:59
Intake Total 2580 / 2580 1650 / 1650 1020 / 1020
Output Total 925 / 925 1100 / 1100
Balance 1655 / 1655 550 / 550 1020 / 1020
Physical Exam
-
General: Well Developed, Well Nourished, No Apparent Distress and Appears Chronically Ill
HEENT: Normocephalic and Atraumatic
Respiratory: Clear to Auscultation; Negative Wheezes or Rhonchi
Cardiac: Regular Rhythm, S1/S2 and Murmur
GI: Soft, Nontender, Nondistended and Normal Bowel Sounds
Musculoskeletal: No Clubbing, No Cyanosis and No Edema
Skin: Warm
Neuro: Awake and Alert
[2023-10-17 21:29] LABS: Glucose - Point of Care 211 mg/dl (70-99)
[2023-10-18 03:15] VITALS: BP 158/83
[2023-10-18] MEDS: UNASYN IV ×4 (05:44→23:32)
[2023-10-18 06:15] VITALS: BMI 22.7
[2023-10-18] MEDS: SYMBICORT 160/4.5 MCG INHALER 2 PUFF INH ×2 (06:21→19:09)
[2023-10-18 07:15] LABS: Glucose - Point of Care 107 mg/dl (70-99)
[2023-10-18 07:21] VITALS: BP 157/80
[2023-10-18] MEDS: NOVOLOG FLEXPEN-MODERATE RESISTANCE SC (07:51)
[2023-10-18] MEDS: VITAMIN B1 100 MG PO ×2 (07:51→19:14)
[2023-10-18] MEDS: FOLVITE 1 MG PO (07:51)
[2023-10-18] MEDS: PROTONIX 20 MG PO (07:51)
[2023-10-18] MEDS: MUCINEX 600 MG PO ×2 (07:51→19:14)
[2023-10-18] MEDS: COREG 6.25 MG PO ×2 (07:52→19:14)
[2023-10-18] MEDS: KCL 20 MEQ PO (07:52)
[2023-10-18] MEDS: NICODERM TRANSDERMAL 21 MG TRANSDERM (07:52)
[2023-10-18] MEDS: MAGNESIUM OXIDE 500 MG PO ×2 (07:52→19:14)
[2023-10-18] MEDS: LASIX 40 MG IV (07:52)
[2023-10-18] MEDS: DELTASONE 20 MG PO (07:52)
[2023-10-18 08:02] LABS: % Basophils 0.3 % (0-2); % Eosinophils 0.3 % (0-6); % Immature Granulocytes 0.3 % (0-0.5); % Monocytes 9.4 % (1.7-9.3); % Neutrophils 59.7 % (42.2-75.2); Absolute Lymphocytes 0.9 10^3/uL (1.2-3.4); Absolute Monocytes 0.3 10^3/uL (0.1-0.6); Absolute Neutrophils 1.9 10^3/uL (1.4-6.5); Hematocrit 30.1 % (39.0-52.0); Mean Corp Hgb Conc. 33.2 g/dL (33.0-37.0); Mean Corpuscular Hgb 29.5 pg (27.0-31.0); Mean Corpuscular Volume 88.8 fL (80.0-94.0); Mean Platelet Volume 11.3 fL (7.4-10.4); Nucleated Red Blood Cells % 0 % (-); Platelet Count 93 10^3/uL (130-400); Red Blood Cell Count 3.39 10^6/uL (4.70-6.10); Red Cell Dist. Width 20.1 % (11.5-14.5); White Blood Cell Count 3.1 10^3/uL (4.8-10.8)
[2023-10-18 08:21] LABS: NT-proBNP 21700 pg/ml
[2023-10-18 08:38] LABS: Blood Urea Nitrogen 19 mg/dl (9-20); Calcium 9.2 mg/dl (8.4-10.2); Carbon Dioxide 27 mmol/L (22-30); Chloride 104 mmol/L (98-107); Estimated Creatinine Clearance 98 ml/min; Glucose 94 mg/dl (70-99); Magnesium 1.4 mg/dl (1.6-2.3); Potassium 3.9 mmol/L (3.5-5.1); Sodium 138 mmol/L (135-145); eGFR > 60.00
--- NOTE | 2023-10-18 11:00 | W.PN.UPDATE ---
Update Note
Progress Note Update
Patient seen at bedside, chart reviewed, discussed with staff. Mr. Gomes feels he is getting better and hopes to go home soon. Denies any withdrawal symptoms. He does exhibit better insight today regarding his ETOH use and his medical issues. He tells
me he wants to be well and get back to living healthy again and will do what it takes to 'stay of of this place'. He explains that he would drink to find gareth. 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
been great since then. He does report having a strong support team at home including family and friends who will help him with sobriety and getting healthy again. He tells me he cesar snot currently feel depressed, he actually feels 'motivated' but
admits he has likely been suffering from depression. He will consider looking into psychotherapy and would even consider an antidepressant if needed. He has an appointment with PCP set up and will discuss more with him. resources given for LVF as
well.
Impression/Plan: ETOH use disorder, severe - no withdrawal symptoms, MSAS protocol in place. Psych will sign off, call or reconsult with any new or immediate concerns.
[2023-10-18 11:36] LABS: Glucose - Point of Care 256 mg/dl (70-99)
[2023-10-18] MEDS: NOVOLOG FLEXPEN-MODERATE RESISTANCE 5 UNITS SC ×2 (11:44→17:22)
--- NOTE | 2023-10-18 13:36 | W.PN.CARDCBS ---
Addendum entered and electronically signed by Vasquez Lopez MD 10/18/23 16:18:
I saw and examined the patient.
The COOL ROOFING INSTALLER or PA's note was reviewed and I agree with the note.
Comment: General: Well developed, well nourished in NAD.
Neck: Supple, no JVD, HJR, carotids +2 B/L, no bruits bilaterally.
Heart: Non displaced PMI, RRR, no murmurs, No S3, S4, no rubs.
Lungs: Scattered rhonchi throughout
Extremities: No clubbing, cyanosis or edema bilaterally.
Neuro: Grossly nonfocal, awake, alert and oriented x3.
Continue to treat CHF and pneumonia. proBNP increased. Will give more IV Lasix today. Consider change to oral Lasix on 10/18. No more V. tach
Original Note:
Today's Communication / Plan
-
Give additional 20 mg IV Lasix this afternoon
Continue to replete magnesium potassium
Continue to monitor and trend renal function and electrolytes
Daily weights
Impression / Plan
-
Assess:
Presented 10/12/2023 with fever, cough, tachycardia
Multifocal pneumonia
Nonsustained ventricular tachycardia, 12 beats
Acute diastolic CHF
Alcohol abuse
Pancytopenia
Depression
Anemia
Chronic polyarthralgia
Likely alcohol induced fatty liver
Echocardiogram October 14, 2023, EF 54%, mild concentric LVH , no significant valvular disease normal RV function, PA pressure 30-35
PLan:
He present 10/12/2023 with cough, fever, tachycardia in setting of multifocal pneumonia
Reports that he is feeling significantly better and has been able to ambulate around the unit without chest pain or SOB
Episode of nonsustained ventricular tachycardia, 12 beats, in the setting of alcohol abuse, pancytopenia, and multifocal pneumonia.
He has no further V. tach on tele
Echocardiogram this admission with preserved ejection fraction. Continue Coreg 6.25 mg twice daily.
Weight up 12 pounds since admission, was 124 lbs now 136 lbs and proBNP increased from 7120 to 21,700 on repeat 10/18/2023. Although he does not appear acutely volume overload.
Chest x-ray 10/18/2023 with small bilateral pleural effusions.
Would continue IV Lasix and hold on transition to oral diuretics with elevated proBNP and unclear if weights are accurate. Give an additional 20 mg IV lasix this afternoon
Continue to replete magnesium and potassium
Discussed with family at bedside
Needs to quit alcohol and tobacco.
Iron infusion per primary service
He likely should have a noninvasive stress test as an outpatient when he recovers from his pneumonia.
History of Present Illness 10/15/23:
58-year-old male with past medical history of polyarthralgia, alcohol abuse, tobacco use, hypertension, depression, and COPD presents to [facility] with fever, tachycardia, and cough. A workup ensued and chest x-ray and CT scan suggested
multifocal pneumonia. He was treated with antibiotics and slowly improved. He denied any chest pains. His breathing has been improving. On October 14 he had an episode of 12 beats of nonsustained ventricular tachycardia. The patient did not feel
it. He has no palpitations. He has been hospitalized for several days. He denies any shakes, withdrawal symptoms, or hallucinations. He states he is relatively active and ambulates with no chest pains or shortness of breath. He does have
depression. He does smoke a pack of cigarettes daily. He was also found to have pancytopenia presumably from alcohol abuse. He denies any leg edema
Progress Note - Inspector Electromechanical
Subjective
Date of Service: October 18, 2023
Reports that he is feeling significantly better and has been able to ambulate around the unit without chest pain or SOB. Admits he had been losing weight as outpatient but was 'drinking vodka and eating [employer]'
Objective
Labs:
10/18/23 07:30
10/18/23 07:30
Labs
Hgb 10.0 g/dL (13.0-18.0) L 10/18/23 07:30
Hct 30.1 % (39.0-52.0) L 10/18/23 07:30
Plt Count 93 10^3/uL (130-400) L 10/18/23 07:30
Sodium 138 mmol/L (135-145) 10/18/23 07:30
Potassium 3.9 mmol/L (3.5-5.1) 10/18/23 07:30
BUN 19 mg/dl (9-20) 10/18/23 07:30
Creatinine 0.7 mg/dL (0.7-1.3) 10/18/23 07:30
Glucose 94 mg/dl (70-99) 10/18/23 07:30
Vital Signs and I&O:
Vital Signs
Temp Pulse Resp BP Pulse Ox
98.6 F 77 16 157/80 97
10/18/23 07:21 10/18/23 07:21 10/18/23 07:21 10/18/23 07:52 10/18/23 07:21
Vital Signs
Temp Pulse Resp BP Pulse Ox
98.6 F 77 16 157/80 97
10/18/23 07:21 10/18/23 07:21 10/18/23 07:21 10/18/23 07:52 10/18/23 07:21
Intake & Output
10/16/23 10/17/23 10/18/23 10/19/23
06:59 06:59 06:59 06:59
Intake Total 2580 / 2580 1650 / 1650 1740 / 1740
Output Total 925 / 925 1100 / 1100
Balance 1655 / 1655 550 / 550 1740 / 1740
Physical Exam
Physical Exam
GEN: No distress, awake, Ox3; sitting in bed getting iron
HEENT: supple, anicteric, mmm
LUNGS: mildly decreased as bases otherwise CTA, no wheezes/rales
CV: Reg, S1/S2, no murmur, rub or gallop
ABD: soft, BS+, NT/ND
EXT: No edema, clubbing or cyanosis
NEURO: Gross non-focal
SKIN: No rash, warm, dry
[2023-10-18] MEDS: FERRLECIT 110 MG IV (13:50)
[2023-10-18 15:39] VITALS: BP 134/74
--- NOTE | 2023-10-18 16:36 | W.PN.HOSP.TC ---
Today's Communication/Plan
-
IV diuresis for another 24 hours
Continue antibiotics for another 24 hours
Discharge planing tentatively on 10/18
Assessment / Plan
Assessment / Plan
Impression:
Presentation with fever, tachycardia.
Multifocal pneumonia.
Acute CHF preserved EF
Nonsustained ventricular tachycardia.
Alcohol use disorder with risk for delirium tremens.
Possible clinical depression, not confirmed suicidal ideation
Pancytopenia
Suspect alcohol induced hepatic steatosis.
Chronic polyarthralgia
COPD asthma
Hypertension.
Hypomagnesemia
Mild protein calorie malnutrition
Plan:
Presentation with fever, tachycardia
Chest x-ray/CT scan with multifocal pneumonia.
Sepsis ruled out.
? If community-acquired versus aspiration in patient with alcohol intoxication.
Continue antibiotics covering aspiration and community-acquired pathogens with Unasyn and doxycycline for another 24 hours
Follow blood cultures negative to date
Speech and swallow evaluation appreciated
Enterococcus faecalis bacteriuria noted. Patient has been asymptomatic.
Acute CHF preserved EF
Responded to IV Lasix.
Noted rising pro CHF BNP, although volume status improved on exam with follow-up chest x-ray showing resolution of bilateral infiltrate.
Additional dose of IV Lasix today with hope to transition to oral regimen on 10/18
Essential hypertension.
On Coreg SUPERVISOR POWDERED METAL.
Monitor BP trend.
Episode of nonsustained ventricular tachycardia without symptoms on 10/14.
Negative troponins
Echocardiogram with preserved biventricular function and no left-ventricular wall motion abnormalities.
Suspect in the settings of EtOH, anemia, mild hypomagnesemia
Continue cardiac monitoring
Replete magnesium
Transfuse to keep hemoglobin above 8.
Cardiology evaluation apprec
Pancytopenia suspect secondary to alcohol use.
Chronic normocytic anemia
No prior history of workup or screening colonoscopy
Iron levels consistent with weeks picture of iron deficiency and anemia of chronic inflammation
IV iron
Folate.
Transfuse to keep hemoglobin above 8. 1 unit of packed red blood cells ordered on 10/14
Consider packed red blood cell transfusion if hemoglobin falls consistently below 7.
Will require outpatient GI evaluation including colonoscopy.
Polyarthralgia
Prior rheumatologic workup negative for SCOTT and rheumatoid factor. Had mild elevation of sed rate and CRP. Referred but never follow-up with rheumatology as outpatient
Reports recent Medrol taper prescribed by primary physician
Noted with mildly elevated inflammatory markers: Sed rate/CRP. Normal uric acid level. Repeated SCOTT/Rf pending.
Suspect polyarthropathy due to either polyarticular gout versus pseudogout
Initiated on prednisone empirically at 20 mg.
Physical therapy evaluation
Steroid-induced hyperglycemia
Check hemoglobin A1c.
Basal bolus protocol
Alcohol use disorder
Suspect severe given hepatic steatosis
Alcohol intoxication upon admission.
Monitor for DT.
Continue MSAS protocol with lorazepam
Psychiatry consultation apprec --pt refusing to go to [facility]--explained alcohol is poison to him...still refusing--seems to be in denial that ETOH is causing all of this.....
Denies suicidal ideations
COPD
Doubt exacerbation as patient presents with no wheezing.
Imaging with bilateral/multifocal pneumonia as above.
Continue preadmission regimen including Symbicort and albuterol nebs.
DVT prophylaxis Lovenox
Full code.
Anticipated Discharge: 24 - 48 hours
Subjective/Interval History
-
Date of Service: October 18, 2023
Objective Data
-
Labs:
Laboratory Results
10/18/23
07:30
WBC 3.1 L
Hgb 10.0 L
Hct 30.1 L
Plt Count 93 L
Sodium 138
Potassium 3.9
Chloride 104
Carbon Dioxide 27
BUN 19
Creatinine 0.7
Glucose 94
Calcium 9.2
Vital Signs:
Vital Signs
Temp Pulse Resp BP Pulse Ox
97.7 F 89 16 134/74 96
10/18/23 15:39 10/18/23 15:39 10/18/23 15:39 10/18/23 15:39 10/18/23 15:39
I&O
10/17/23 10/18/23 10/19/23
06:59 06:59 06:59
Intake Total 1650 / 1650 1740 / 1740
Output Total 1100 / 1100
Balance 550 / 550 1740 / 1740
Physical Exam
-
General: Well Developed, Well Nourished, No Apparent Distress and Appears Chronically Ill
HEENT: Normocephalic and Atraumatic
Respiratory: Clear to Auscultation; Negative Wheezes or Rhonchi
Cardiac: Regular Rhythm, S1/S2 and Murmur
GI: Soft, Nontender, Nondistended and Normal Bowel Sounds
Musculoskeletal: No Clubbing, No Cyanosis and No Edema
Skin: Warm
Neuro: Awake and Alert
[2023-10-18 16:38] LABS: Glucose - Point of Care 288 mg/dl (70-99)
[2023-10-18] MEDS: LASIX 20 MG IV (17:20)
[2023-10-18] MEDS: LOVENOX 40 MG SC (17:20)
[2023-10-18 19:21] VITALS: BP 149/75
[2023-10-18 22:04] LABS: Glucose - Point of Care 179 mg/dl (70-99)
[2023-10-18 23:15] VITALS: BP 145/84
[2023-10-19 03:44] VITALS: BP 159/91
[2023-10-19] MEDS: UNASYN IV ×3 (06:00→13:08)
[2023-10-19 07:07] LABS: Glucose - Point of Care 126 mg/dl (70-99)
[2023-10-19 08:02] VITALS: BP 140/74
[2023-10-19] MEDS: SYMBICORT 160/4.5 MCG INHALER 2 PUFF INH (08:05)
--- NOTE | 2023-10-19 08:34 | W.PN.CARDCBS ---
Addendum entered and electronically signed by Rafat Fortune MD 10/19/23 14:42:
I saw and examined the patient.
The Automotive Drivability Technician's note was reviewed and I agree with the note.
Comment: GEN: No distress, awake, Ox3
HEENT: supple, anicteric, mmm
LUNGS: CTA, no wheezes/rales
CV: Reg, S1/S2, 1/6 syst LSB, no gallop
ABD: soft, BS+, NT/ND
EXT: No edema
NEURO: Gross non-focal
SKIN: No rash
Plan:
Clinically much improved. Unsure what to make about abnormal proBNP as he clinically has diuresed and feels well with clear lungs.
Continue Lasix 20 mg daily.
Repeat basic metabolic panel in 1 to 2 weeks.
Okay for discharge.
Original Note:
Today's Communication / Plan
-
check BMP and mag level
Replete to keep K+ 4-5, mag >2
Transition to oral Lasix 20 mg daily
BMP mag level in 7 to 10 days as outpatient
Cardiology follow-up has been arranged
Impression / Plan
-
Green Plumber: none prior to admission, initial consult Dr. Fortune
Assess:
Presented 10/12/2023 with fever, cough, tachycardia
Multifocal pneumonia
Nonsustained ventricular tachycardia, 12 beats
Acute diastolic CHF
Alcohol abuse
Pancytopenia
Depression
Anemia
Chronic polyarthralgia
Likely alcohol induced fatty liver
Echocardiogram October 14, 2023, EF 54%, mild concentric LVH , no significant valvular disease normal RV function, PA pressure 30-35
PLan:
He present 10/12/2023 with cough, fever, tachycardia in setting of multifocal pneumonia
Reports that he is feeling significantly better and has been able to ambulate around the unit without chest pain or SOB
Episode of nonsustained ventricular tachycardia, 12 beats, in the setting of alcohol abuse, pancytopenia, and multifocal pneumonia early in admission.
5 beats of NSVT on tele early am 10/18
Check magnesium and BMP. Keep mag >2 and K+>; labs pending
Continue to replete magnesium and potassium
Echocardiogram this admission with preserved ejection fraction. Continue Coreg 6.25 mg twice daily.
ProBNP increased from 7120 to 21,700 on repeat 10/18/2023. Chest x-ray 10/18/2023 with small bilateral pleural effusions. He got an extra 20 mg of IV Lasix on 10/17 in pm
He does not appear acutely volume overload.
Transition to oral diuretics Lasix 20 mg daily 10/19. Send home on this dose
BMP, magnesium level as outpt in 7-10 days
Needs to quit alcohol and tobacco. He verbalized understanding
Iron infusion per primary service
Outpatient cardiology follow-up has been arranged
He likely should have a noninvasive stress test as an outpatient when he recovers from his pneumonia.
History of Present Illness 10/15/23:
58-year-old male with past medical history of polyarthralgia, alcohol abuse, tobacco use, hypertension, depression, and COPD presents to [facility] with fever, tachycardia, and cough. A workup ensued and chest x-ray and CT scan suggested
multifocal pneumonia. He was treated with antibiotics and slowly improved. He denied any chest pains. His breathing has been improving. On October 14 he had an episode of 12 beats of nonsustained ventricular tachycardia. The patient did not feel
it. He has no palpitations. He has been hospitalized for several days. He denies any shakes, withdrawal symptoms, or hallucinations. He states he is relatively active and ambulates with no chest pains or shortness of breath. He does have
depression. He does smoke a pack of cigarettes daily. He was also found to have pancytopenia presumably from alcohol abuse. He denies any leg edema
Progress Note - Green Plumber
Subjective
Date of Service: October 19, 2023
Patient seen and examined. Patient sitting up in chair. Patient reports that he feels great. He has been ambulating around the room and unit without chest pain, shortness of breath, dizziness, lightheadedness, palpitations.
Patient is eager to go home.
Objective
Labs:
10/18/23 07:30
10/18/23 07:30
Labs
Hgb 10.0 g/dL (13.0-18.0) L 10/18/23 07:30
Hct 30.1 % (39.0-52.0) L 10/18/23 07:30
Plt Count 93 10^3/uL (130-400) L 10/18/23 07:30
Sodium 138 mmol/L (135-145) 10/18/23 07:30
Potassium 3.9 mmol/L (3.5-5.1) 10/18/23 07:30
BUN 19 mg/dl (9-20) 10/18/23 07:30
Creatinine 0.7 mg/dL (0.7-1.3) 10/18/23 07:30
Glucose 94 mg/dl (70-99) 10/18/23 07:30
Vital Signs and I&O:
Vital Signs
Temp Pulse Resp BP Pulse Ox
98.2 F 76 16 140/74 95
10/19/23 08:02 10/19/23 08:02 10/19/23 08:02 10/19/23 08:02 10/19/23 08:02
Vital Signs
Temp Pulse Resp BP Pulse Ox
98.2 F 76 16 140/74 95
10/19/23 08:02 10/19/23 08:02 10/19/23 08:02 10/19/23 08:02 10/19/23 08:02
Intake & Output
10/17/23 10/18/23 10/19/23 10/20/23
06:59 06:59 06:59 06:59
Intake Total 1650 / 1650 1740 / 1740 660 / 660
Output Total 1100 / 1100 450 / 450
Balance 550 / 550 1739 210 / 210
Physical Exam
Physical Exam
GEN: No distress, awake, Ox3; sitting in bed getting iron
HEENT: supple, anicteric, mmm
LUNGS: CTA, no wheezes/rales
CV: Reg, S1/S2, no murmur, rub or gallop
ABD: soft, BS+, NT/ND
EXT: No edema, clubbing or cyanosis
NEURO: Gross non-focal
SKIN: No rash, warm, dry
[2023-10-19] MEDS: NOVOLOG FLEXPEN-MODERATE RESISTANCE SC (09:01)
[2023-10-19] MEDS: VITAMIN B1 100 MG PO (09:03)
[2023-10-19] MEDS: MAGNESIUM OXIDE 500 MG PO (09:03)
[2023-10-19] MEDS: FOLVITE 1 MG PO (09:04)
[2023-10-19] MEDS: MUCINEX 600 MG PO (09:04)
[2023-10-19] MEDS: COREG 6.25 MG PO (09:04)
[2023-10-19] MEDS: PROTONIX 20 MG PO (09:04)
[2023-10-19] MEDS: KCL 20 MEQ PO (09:04)
[2023-10-19] MEDS: DELTASONE 20 MG PO (09:05)
[2023-10-19] MEDS: LASIX 40 MG IV (09:05)
[2023-10-19] MEDS: NICODERM TRANSDERMAL 21 MG TRANSDERM (09:06)
[2023-10-19 10:43] VITALS: BP 121/69
--- NOTE | 2023-10-19 11:06 | CM ---
Patient seen bedside.
Per patient tentative d/c today.
Patient spoke with Remi from [facility] and has information for outpatient resources.
Per patient his daughter will transport home.
Plan: home no needs anticipated.
[2023-10-19 11:21] LABS: Blood Urea Nitrogen 23 mg/dl (9-20); Calcium 9.8 mg/dl (8.4-10.2); Carbon Dioxide 28 mmol/L (22-30); Chloride 99 mmol/L (98-107); Estimated Creatinine Clearance 85 ml/min; Glucose 159 mg/dl (70-99); Magnesium 1.6 mg/dl (1.6-2.3); Sodium 134 mmol/L (135-145); eGFR > 60.00
[2023-10-19 11:44] LABS: Glucose - Point of Care 200 mg/dl (70-99)
[2023-10-19] MEDS: NOVOLOG FLEXPEN-MODERATE RESISTANCE 3 UNITS SC (13:01)
--- NOTE | 2023-10-19 14:14 | W.DS.TRANS ---
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
-
Discharge Instructions:
Discharge Diagnosis/Procedures CHF
Pneumonia
Diet 2 Gram Sodium
Blood Work BMP, magnesium level in 7-10 days
Instructions:
Stand-Alone Forms:
Changes to Home Medications: Yes
Discharge Medications:
DC Medications w/original date entered in [email or web address]
carvedilol 6.25 mg tablet 6.25 mg PO BID #60 tabs 05/25/23
albuterol sulfate 90 mcg/actuation aerosol inhaler 2 puff inhalation Q4HPRN PRN SHORTNESS OF BREATH 10/13/23
budesonide-formoterol HFA 160 mcg-4.5 mcg/actuation aerosol inhaler (Symbicort) 2 puff inhalation BID Lung/Breathing Issues 10/13/23
ferrous sulfate 325 mg (65 mg iron) tablet 325 mg PO DAILY Supplement 10/13/23
folic acid 400 mcg tablet 0.4 mg PO DAILY Supplement 10/13/23
multivitamin 1 tab PO DAILY Supplement 10/13/23
furosemide 20 mg tablet (Lasix) 20 mg PO DAILY #30 tabs 10/19/23
pantoprazole 20 mg tablet,delayed release (Protonix) 20 mg PO DAILY #30 tabs 10/19/23
prednisone 10 mg tablet 10 mg PO DAILY #10 tabs 10/19/23
Home Medication Changes
Lasix initiated.
Prednisone taper down to 10 mg for additional 10 days for presumed polyarthropathy.
PPI initiated along with steroids.
Pending Results: No
== END 2023-10-19 14:42 | disposition home or self-care (01) | DRG 177 ==
LOC: 3 WEST ACU 05:21
PROVIDERS: Internal Medicine; Physician Assistant Medical; Student in an Organized Health Care Education/Training Program; ADMITTING PHYSICIAN Internal Medicine; ATTENDING PHYSICIAN Internal Medicine; CONSULT PHYSICIAN Internal Medicine Cardiovascular Disease; EMERGENCY PHYSICIAN Emergency Medicine; FAMILY PHYSICIAN Internal Medicine; OTHER PHYSICIAN Psychiatry & Neurology Psychiatry
DX: J69.0 Pneumonitis due to inhalation of food and vomit (principal); I50.31 Acute diastolic (congestive) heart failure; D61.818 Other pancytopenia; J44.0 Chronic obstructive pulmonary disease with (acute) lower respiratory infection; R45.851 Suicidal ideations; E44.1 Mild protein-calorie malnutrition; I47.20 Ventricular tachycardia, unspecified; N39.0 Urinary tract infection, site not specified; I42.6 Alcoholic cardiomyopathy; F10.129 Alcohol abuse with intoxication, unspecified; M35.3 Polymyalgia rheumatica; I11.0 Hypertensive heart disease with heart failure
CPT/HCPCS: 71046; 71250; 80048; 80053; 80061; 80143; 80179; 80306; 81003; 81015; 82077; 82550; 82728; 82947; 82962; 83036; 83540; 83550; 83735; 83880; 84100; 84145; 84156; 84484; 84550; 85025; 85027; 85652; 86140; 86200; 86430; 86850; 86900; 86901; 86920; 87040; 87077; 87086; 87186; 87502; 87811; 92526; 92610; 93005; 93306; 94640; 96361; 96365; 96367; 96375; 97162; 97166; 99285; 99406; J2916; P9016

== ENCOUNTER 2023-11-07 15:24 | Emergency (ER) | payer OTHER, SELFPAY ==
[2023-11-07 15:34] VITALS: BP 155/89
[2023-11-07 16:17] LABS: % Basophils 0.9 % (0-2); % Eosinophils 4.4 % (0-6); % Immature Granulocytes 0.4 % (0-0.5); % Lymphocytes 33.2 % (20.5-51.1); % Monocytes 9.7 % (1.7-9.3); % Neutrophils 51.4 % (42.2-75.2); Absolute Eosinophils 0.1 10^3/uL (0-0.7); Absolute Lymphocytes 0.8 10^3/uL (1.2-3.4); Absolute Monocytes 0.2 10^3/uL (0.1-0.6); Absolute Neutrophils 1.2 10^3/uL (1.4-6.5); Hematocrit 31.3 % (39.0-52.0); Hemoglobin 10.8 g/dL (13.0-18.0); Mean Corp Hgb Conc. 34.5 g/dL (33.0-37.0); Mean Corpuscular Hgb 30.2 pg (27.0-31.0); Mean Corpuscular Volume 87.4 fL (80.0-94.0); Nucleated Red Blood Cells % 0 % (-); Red Blood Cell Count 3.58 10^6/uL (4.70-6.10); Red Cell Dist. Width 18.7 % (11.5-14.5)
[2023-11-07 16:20] LABS: White Blood Cell Count 2.3 10^3/uL (4.8-10.8)
[2023-11-07 16:35] LABS: Mean Platelet Volume 10.2 fL (7.4-10.4); Platelet Count 80 10^3/uL (130-400)
[2023-11-07 16:36] LABS: ALT (SGPT) 23 U/L (0-50); AST (SGOT) 43 U/L (17-59); Acetaminophen < 10 ug/ml (10-30); Albumin 4.1 g/dl (3.5-5.0); Alcohol 292 mg/dl; Alkaline Phosphatase 155 U/L (38-126); Blood Urea Nitrogen 17 mg/dl (9-20); Calcium 8.8 mg/dl (8.4-10.2); Carbon Dioxide 20 mmol/L (22-30); Chloride 111 mmol/L (98-107); Glucose 129 mg/dl (70-99); Potassium 4.2 mmol/L (3.5-5.1); Sodium 145 mmol/L (135-145); Total Bilirubin 0.5 mg/dl (0.2-1.3); Total Protein 7.7 g/dl (6.3-8.2); eGFR > 60.00
[2023-11-07] MEDS: LIDOCAINE 4% PATCH 1 PATCH TOPICAL (17:32)
[2023-11-07] MEDS: MOTRIN 400 MG PO (17:32)
[2023-11-07 17:43] LABS: Salicylate < 1.0 mg/dl (2.0-20.0)
[2023-11-07 17:49] LABS: Amphetamines Negative (Negative); Barbiturates Negative (Negative); Benzodiazepines Negative (Negative); Buprenorphine Negative (Negative); Cocaine Negative (Negative); Marijuana Negative (Negative); Methadone Negative (Negative); Methamphetamines Negative (Negative); Opiates Negative (Negative); Phencyclidine Negative (Negative); Tricyclic Antidepressants Negative (Negative)
[2023-11-07 19:07] VITALS: BP 153/78
--- NOTE | 2023-11-07 20:43 | ED.GENMED ---
Addendum entered and electronically signed by Florentin Rodriguez DO 11/08/23 01:44:
302 upheld by telepsychiatry
Original Note:
History of Present Illness
General
Chief Complaint: Crisis Evaluation
Source: patient and other (302 filing)
Exam Limitations: none
Time Seen by Provider: 11/07/23 16:53
Nursing documentation reviewed up to this point in time: agreed with
History of Present Illness
History of Present Illness:
58-year-old male with a past medical history of COPD, hypertension, CHF, diabetes, alcohol abuse who presents to the emergency room on a 302 filed by his daughter for suicidal ideation and failure to care for himself. Patient is awake and alert
although mildly intoxicated on arrival. Reviewed 302 filing: Patient apparently has not taken these medications per daughter's report. He is apparently not caring for himself and losing weight. He apparently has expressed suicidal ideation
multiple times including threatening to drink himself to . Apparently he has been 'missing' and she was concerned for his safety, 302 filed and patient says that police came to pick him up. Patient says that he has no suicidal ideation.
Denies any attempts at suicide. Denies any homicidal ideation. Denies hallucinations. He says that he is a daily drinker and he had a bottle of vodka today. He says that he plans to continue drinking; he says he has tried to quit multiple times
unsuccessfully and has no current interest in quitting. He does note that he had a fall 4 days ago and hit his left ribs on a chair and he has some minor pain from that. There was no head trauma or loss of consciousness. He denies any other
injuries or physical complaints today. He is not on blood thinners.
Past History
Past History
ED Past Medical History: COPD, HTN and Psychiatric
ED Past Surgical History: Orthopedic (Wrist fracture, )
Social History
Tobacco: Smoker
Alcohol: Former
Personal:
Living: with family
Review of Systems
Review of Systems
All Other Systems: ROS reviewed and negative except as documented in HPI and ROS
Constitutional: Denies fever
Respiratory: Denies cough or trouble breathing
Cardiac: Reports chest pain (Rib pain); Denies palpitations
ABD/GI: Denies abdominal pain, nausea, vomiting or diarrhea
: Denies flank pain
Musculoskeletal: Denies neck pain or back pain
Neurological: Denies dizzy or headache
Phy Exam
Physical Exam
Physical Exam:
General: Awake, alert; no acute distress
Head: Normocephalic, atraumatic
Eyes: Conjunctiva normal
Throat: Airway intact, handling secretions
Neck: Trachea midline, supple without meningismus, no cervical spine tenderness
Lungs: Clear to auscultation bilaterally, no wheezing, rales, rhonchi
Heart: Regular rate and rhythm, no murmurs, gallops, or rubs; patient has some left anterior chest wall tenderness but no crepitus, no ecchymosis
Abd: Soft, non distended, nontender to deep palpation
Back: No signs of trauma to the back or flank and no tenderness of the thoracic or lumbar spine
Neuro: Cranial nerves grossly intact, no gross motor or sensory deficits
Skin: Minor abrasion on the left forearm which appears old
Extremities: Warm and well-perfused, moving all extremities equally without discomfort, ambulatory with normal gait
Scores
Heart Failure Risk
Heart Failure Risk Score: Not Applicable
Heart Score for Chest Pain Patients
STEMI patient?: Not applicable
Withdrawal Assessment of Alcohol
Withdrawal Assessment Completed?: Not applicable
Course
Orders/Labs/Results
Orders:
Orders
11/07/23 16:08
Acetaminophen Urgent
Alcohol Urgent
Complete Blood Count/With Diff Urgent
Comprehensive Metabolic Panel Urgent
Salicylate Urgent
11/07/23 17:02
Drug Screen, Urine [Urine Drug Abuse Screen] Urgent
Date Specimen was Collected: 11/07/23
Time Specimen was Collected: 17:00
11/07/23 17:08
Ibuprofen [Motrin] 400 mg PO NOW STA
Lidocaine [Lidocaine 4% Patch] 1 patch TOPICAL ONCE ONE
CR Ribs-left 3 Vw W/pa Chest Urgent
Comment:
Reason For Exam: left rib pain s/p fall
11/07/23 20:33
Alcohol Urgent
Abnormal Lab Results
11/07/23
16:08
WBC 2.3 L* 10^3/uL
(4.8-10.8)
RBC 3.58 L 10^6/uL
(4.70-6.10)
Hgb 10.8 L g/dL
(13.0-18.0)
Hct 31.3 L %
(39.0-52.0)
RDW 18.7 H %
(11.5-14.5)
Plt Count 80 L 10^3/uL
(130-400)
Absolute Neuts (auto) 1.2 L 10^3/uL
(1.4-6.5)
Absolute Lymphs (auto) 0.8 L 10^3/uL
(1.2-3.4)
Monocytes % 9.7 H %
(1.7-9.3)
Chloride 111 H mmol/L
(98-107)
Carbon Dioxide 20 L mmol/L
(22-30)
Glucose 129 H mg/dl
(70-99)
Alkaline Phosphatase 155 H U/L
(38-126)
Salicylates < 1.0 L mg/dl
(2.0-20.0)
Acetaminophen < 10 L ug/ml
(10-30)
11/07/23 16:08
11/07/23 16:08
Vital Signs
Initial and Last Documented VS:
Initial Vital Signs
Temp Pulse Resp BP Pulse Ox
37.3 C 106 16 155/89 93
11/07/23 15:34 11/07/23 15:34 11/07/23 15:34 11/07/23 15:34 11/07/23 15:34
Last Documented Vital Signs
Temp Pulse Resp BP Pulse Ox
37.3 C 98 18 153/78 93
11/07/23 15:34 11/07/23 19:07 11/07/23 19:07 11/07/23 19:07 11/07/23 19:07
MDM/Problems Addressed
Differential Diagnosis Includes:
Rib pain: Rib fracture, bruised ribs, pneumothorax
Suicidal ideation: Acute depressive episode versus alcohol related
MDM/Problems Addressed:
58-year-old male presents to the emergency room with 302 for failure to care for himself, continued alcohol abuse and suicidal ideation. Patient denies suicidal ideation but admits to continued alcohol abuse. No interest in rehab at this point.
His only physical complaint is some rib pain after a fall few days ago no other serious injuries. Vital signs significant for mild tachycardia and mild hypertension but otherwise normal. Physical exam as above. Will check labs including CBC and
CMP, alcohol level, UDS. Will check salicylate and acetaminophen levels. Will check rib series with chest x-ray. Case discussed with crisis for evaluation.
X-ray ribs reviewed shows no fracture, no pneumothorax or other acute pathology. Labs reviewed: CBC shows chronic pancytopenia unchanged. CMP no clinically significant abnormalities. Tylenol and salicylate levels are negative. UDS is negative.
Alcohol is 292. Crisis evaluated patient�telepsych will not perform an assessment of alcohol level is less than 100. Will monitor here in the emergency room and one-to-one observation until alcohol level lower. 302 upheld pending telepsych eval.
Monitor for signs of withdrawal.
Chronic conditions affecting care:
Alcohol abuse
Acute Exacerbation and/or Progression of Chronic Illness:
Acutely hypertensive
Acute Exacerbation and/or Progression of Chronic Illness: HTN
*Radiology
Radiology exam reviewed: radiology read reviewed
*Pulse Oximetry
Patient hypoxic: no
*Critical Care Note
Total Time (30-74mins, 75-104mins- exclusive of procedures): Not Applicable
Data Reviewed
Review of Other/Old Records Reveals: Labs and Records
Source: patient, records and other (302 filing)
Patient Management
Discussion with other providers: Other (Discussed with crisis staff)
ED Attending Note
-
Portions of this chart may have been created with voice recognition software.� Occasional wrong word or��sound alike� substitutions may have occurred due to the inherent limitations of voice recognition software.
Discharge Plan
Departure
Discharge Problem:
Alcohol abuse, Suicidal ideation
Prescriptions:
No Action
carvedilol 6.25 mg Tablet
6.25 mg PO BID Qty: 60 0RF
multivitamin Tablet
1 tab PO DAILY
folic acid 400 mcg Tablet
0.4 mg PO DAILY
ferrous sulfate 325 mg (65 mg iron) Tablet
325 mg PO DAILY
albuterol sulfate 90 mcg/actuation HFA aerosol inhaler
2 puff INHALATION Q4HPRN PRN (Reason: SHORTNESS OF BREATH)
budesonide-formoterol [Symbicort] 160-4.5 mcg/actuation HFA aerosol inhaler
2 puff INHALATION BID
prednisone 10 mg tablet
10 mg PO DAILY Qty: 10 0RF
pantoprazole [Protonix] 20 mg tablet,delayed release (DR/EC)
20 mg PO DAILY Qty: 30 0RF
furosemide [Lasix] 20 mg tablet
20 mg PO DAILY Qty: 30 0RF
No Current Medications
0
Referrals:
UNKNOWN - PT NOT,INTERVIEWE [Family Provider] -
Interventions
Interventions:
*Risk Screen - Suicide Last Done: 11/07/23 19:09
*General Assessment Last Done: 11/07/23 15:35
*Neglect/Abuse Screening Last Done: 11/07/23 19:09
ED- Fall Risk Assessment Last Done: 11/07/23 19:09
ED-Psychological Assessment Last Done: 11/07/23 15:35
Discharge Date and Time
Print Language: ARMENIAN
[2023-11-07 21:30] LABS: Alcohol 108 mg/dl
[2023-11-07 21:43] VITALS: BP 148/73
[2023-11-08 08:15] VITALS: BP 191/108
[2023-11-08] MEDS: MOTRIN 400 MG PO (08:23)
[2023-11-08] MEDS: SYMBICORT 80/4.5 MCG INHALER 2 PUFF INH (09:02)
[2023-11-08] MEDS: COREG 6.25 MG PO (09:02)
--- NOTE | 2023-11-08 09:29 | ED.CRISIS ---
ED Crisis Note
ED Crisis Note
Subjective:
58-year-old male on 302 for suicidal ideation. Patient is a chronic alcoholic. He drank yesterday. States he has never been in withdrawal, and does not feel like he is in withdrawal at this time.
Objective:
58-year-old male awake, alert, cooperative. Hypertensive, minimal tremor. Does not appear anxious.
Assessment/Plan:
58-year-old male with suicidal ideation, alcoholism. Chronic leukopenia. Patient did not receive his carvedilol, will treat this morning. Await placement by crisis. Does not appear be in active with this time.
[2023-11-08 10:03] VITALS: BP 144/90
[2023-11-08 11:09] LABS: Glucose - Point of Care 136 mg/dl (70-99)
--- NOTE | 2023-11-08 15:03 | W.PN.UPDATE ---
Update Note
Progress Note Update
Pt seen, resting on gurney, alert, calm, fairly cooperative. States he was able to eat some breakfast- miller and toast. Pt states his mood is improving, denies SI at present, down-playing statements prior to admssion. Pt c/o pain from elbow and
rib injury from falling. CXR- no acute process or rib fx.
Imp: Depressive d/o, R/o MDD, with self-neglect
Alcohol use, unspecified
Rec: continue eval/observation/inpatient psych placement on 302
[2023-11-08 16:25] VITALS: BP 134/88
== END 2023-11-08 16:30 ==
LOC: EMR 15:24
PROVIDERS: Emergency Medicine; EMERGENCY PHYSICIAN Emergency Medicine
DX: F10.10 Alcohol abuse, uncomplicated (principal); R45.851 Suicidal ideations; J44.9 Chronic obstructive pulmonary disease, unspecified; I11.0 Hypertensive heart disease with heart failure; I50.9 Heart failure, unspecified; Y90.8 Blood alcohol level of 240 mg/100 ml or more; F17.200 Nicotine dependence, unspecified, uncomplicated; E11.9 Type 2 diabetes mellitus without complications; D72.819 Decreased white blood cell count, unspecified
CPT/HCPCS: 99285; 71101; 80053; 80143; 80179; 80306; 82077; 82962; 85025